=== PATIENT | female | born 1995 | race Caucasian/White ===

== ENCOUNTER → 2020-03-09 09:48 | Outpatient (BNVA) | payer MEDICAID, SELFPAY | PROVIDERS: Family Provider Nurse Practitioner Family; PCP Nurse Practitioner Family; Visit Provider Nurse Practitioner Family | DX: E55.9 Vitamin D deficiency, unspecified (principal); R63.4 Abnormal weight loss; R53.83 Other fatigue | CPT/HCPCS: 80053; 81001; 82306; 83036; 84439; 84443; 85025; 85651; 86140; 86803; 87806 ==

== ENCOUNTER → 2020-03-10 15:45 | Outpatient (BNVA) | payer MEDICAID, SELFPAY | PROVIDERS: Family Provider Nurse Practitioner Family; PCP Nurse Practitioner Family; Visit Provider Nurse Practitioner Family | DX: R63.4 Abnormal weight loss (principal); R53.83 Other fatigue; Z30.42 Encounter for surveillance of injectable contraceptive; E55.9 Vitamin D deficiency, unspecified | CPT/HCPCS: 81025 ==

== ENCOUNTER → 2020-03-30 17:11 | Outpatient (BNVA) | payer MEDICAID, SELFPAY | PROVIDERS: Family Provider Nurse Practitioner Family; PCP Nurse Practitioner Family; Visit Provider Nurse Practitioner Family | DX: F41.9 Anxiety disorder, unspecified (principal); F32.9 Major depressive disorder, single episode, unspecified; N93.9 Abnormal uterine and vaginal bleeding, unspecified | CPT/HCPCS: 36415; 80053; 81025; 84702; 85025 ==

== ENCOUNTER → 2021-08-10 11:26 | Outpatient (BNVA) | payer BC, SELFPAY | PROVIDERS: PCP Nurse Practitioner Family; Visit Provider Nurse Practitioner Family | DX: D64.9 Anemia, unspecified (principal); R63.4 Abnormal weight loss; R53.83 Other fatigue; Z79.899 Other long term (current) drug therapy; E55.9 Vitamin D deficiency, unspecified | CPT/HCPCS: 80053; 81003; 82306; 82607; 82746; 83036; 83550; 84439; 84443; 85025 ==

== ENCOUNTER → 2022-02-12 13:42 | Outpatient (BNVA) | payer BC, SELFPAY | PROVIDERS: PCP Nurse Practitioner Family; Visit Provider Psychiatry & Neurology Psychiatry | DX: F43.12 Post-traumatic stress disorder, chronic (principal); F33.2 Major depressive disorder, recurrent severe without psychotic features; F51.5 Nightmare disorder; F41.1 Generalized anxiety disorder; F17.210 Nicotine dependence, cigarettes, uncomplicated | CPT/HCPCS: 99204 ==

== ENCOUNTER → 2022-02-22 10:43 | Outpatient (BNVA) | payer BC, SELFPAY | PROVIDERS: PCP Nurse Practitioner Family; Visit Provider Social Worker | DX: F33.2 Major depressive disorder, recurrent severe without psychotic features (principal); F41.1 Generalized anxiety disorder; F43.12 Post-traumatic stress disorder, chronic | CPT/HCPCS: 90834 ==

== ENCOUNTER → 2022-03-08 10:43 | Outpatient (BNVA) | payer BC, SELFPAY | PROVIDERS: PCP Nurse Practitioner Family; Visit Provider Social Worker | DX: F33.2 Major depressive disorder, recurrent severe without psychotic features (principal); F41.1 Generalized anxiety disorder; F43.12 Post-traumatic stress disorder, chronic | CPT/HCPCS: 90834 ==

== ENCOUNTER → 2022-03-14 07:26 | Outpatient (BNVA) | payer BC, SELFPAY | PROVIDERS: PCP Nurse Practitioner Family; Visit Provider Psychiatry & Neurology Psychiatry | DX: F41.1 Generalized anxiety disorder (principal); F33.2 Major depressive disorder, recurrent severe without psychotic features; F43.12 Post-traumatic stress disorder, chronic; F17.210 Nicotine dependence, cigarettes, uncomplicated | CPT/HCPCS: 99214 ==

== ENCOUNTER → 2022-03-29 07:40 | Outpatient (BNVA) | payer BC, SELFPAY | PROVIDERS: PCP Nurse Practitioner Family; Visit Provider Social Worker | DX: F33.2 Major depressive disorder, recurrent severe without psychotic features (principal); F41.1 Generalized anxiety disorder; F43.12 Post-traumatic stress disorder, chronic | CPT/HCPCS: 90834 ==

== ENCOUNTER → 2022-04-13 07:27 | Outpatient (BNVA) | payer BC, SELFPAY | PROVIDERS: PCP Nurse Practitioner Family; Visit Provider Social Worker | DX: F33.2 Major depressive disorder, recurrent severe without psychotic features (principal); F41.1 Generalized anxiety disorder; F43.12 Post-traumatic stress disorder, chronic | CPT/HCPCS: 90834 ==

== ENCOUNTER 2022-05-10 02:56 | Emergency (ER) | payer BC, MEDICAID, SELFPAY ==
--- NOTE | 2022-05-10 03:01 | ED_ITS ---
Documented by User: Jairon Mitchell MD 05/21/22 23:47 HPI - General: Chief complaint: Vaginal Bleeding Stated complaint: 7 weeks vaginal bleeding Time Seen by Provider: 05/10/22 03:01 History of Present Illness: Ms. Amezquita is a 26-year-old lady who presents to the emergency department due to vaginal bleeding and lower abdominal cramping. She reports history of premature labor in 2 of her pregnancies in the mid 30s weeks but no other complications. Last night she was feeling normal and went to bed. She woke up with some abdominal cramping and noticed blood in her underwear. Intensity symptoms is mild to moderate. Course has persisted. No other specific changes in health, exacerbating, or alleviating factors identifie d. Onset (ago): hour(s) Pain Consistency: intermittent Severity: mild Quality: Cramping Vaginal bleeding: heavy Review of Systems General: Reports: 10 or more systems reviewed and unremarkable except in HPI and below PFSH ED PFSH: Medical History Cannabis use disorder, mild, abuse was using at night for sleep and anxiety, but stopped in March 2022. Generalized anxiety disorder Hx of cryosurgery, cervix, complicating (~2011) performed in [place] Major depressive disorder, recurrent severe without psychotic features Nicotine dependence, cigarettes, uncomplicated Nightmare disorder No pertinent past medical history neghx: htn,dm,thyroid,dvt/pe PCP: None Post-traumatic stress disorder, chronic Psychiatric care Family History Family/Other Breast cancer Maternal Great aunt-- dx age unknown Denies family history of Colon cancer Ovarian cancer Diabetes Heart disease Hypercholesteremia Hypertension Uterine cancer Thyroid disease Stroke Physical Exam Const: COMMON NORMALS: alert GENERAL APPEARANCE: cooperative and well developed HENMT: COMMON NORMALS: normocephalic and atraumatic HEAD & SCALP: normocephalic and atraumatic Eye: COMMON NORMALS: conjunctivae normal CONJUNCTIVA: Yes conjunctivae normal SCLERA: sclerae normal Neck/C-Spine: COMMON NORMALS: supple GENERAL: Yes trachea midline Resp: COMMON NORMALS: normal respiratory effort EFFORT & INSPECTION: Yes ab le to speak in complete sentences Cardio: COMMON NORMALS: regular rate and regular rhythm RATE: regular rate RHYTHM: regular rhythm GI: COMMON NORMALS: Soft to palpation PALPATION: Yes Soft to palpation and No Tenderness to palpation present (GI) PERCUSSION: normal to percussion : OTHER: Pelvic exam performed with cyber transport systems specialist present. Normal external genitalia without blood noted at introitus or perineum. Vagina appears normal, there is pooling in the vaginal vault which somewhat obscures visualization of the cervix. No clots identified. There is midline tenderness on palpation of bimanual exam. Extremity: GENERAL: Yes normal exam except as noted and No edema Neuro: COMMON NORMALS: moves all extremities SENSORIUM/ORIENTATION: Yes alert and No Orientation impaired Psych: COMMON NORMALS: mental status grossly normal and Normal thought process present THOUGHT PROCESS: Normal thought process present Course ED course: - Patient was seen and evaluated by me at bedside - Patient placed on cardiac monitors, IV access obtained - Initial evaluation notable for exam as above - Labs personally interpreted by me - Labs notable for normal hemoglobin. hCG quant [id number]. Previous blood type a positive - Imaging notable for IUP with likely subchorionic hemorrhage - Upon serial reexamination after treatment the patient was similar - Based on patient history, evaluation, and testing as interpreted the most likely cause of the patient's condition is bleeding in early likely related to subchorionic hemorrhage - The results of ED evaluation were discussed with the patient including presc riptions and/or symptomatic cares (if applicable) including appropriate and responsible use, followup plan, and return precautions. The patient verbalized understanding and felt safe for discharge. - Patient discharged in satisfactory condition. Note: Click bubbles or prepopulated dos santos in note writing are used for assistance with data collection and billing and are inherently more limited than narrative and other text portions of this note. Please use narrative for additional clinical history and defer to narrative/free test for any case of contradictory information. If information appears in only free text or click bubble it should be considered present or absent as reported. Please contact note blurb writer for clarifications of clinical information or contradictory information. MDM is a brief summary, contradictory or erroneous seeming information should be clarified and full note should be reviewed. Vital Signs: Vital signs: Vital Signs Temperature 98.2 F 05/10/22 03:03 Pulse Rate 97 05/10/22 03:29 Respiratory Rate 18 05/10/22 06:00 Blood Pressure 113/76 05/10/22 06:00 Pulse Oximetry 98 05/10/22 06:00 Oxygen Delivery Me thod 05/10/22 06:00 MDM - OB/Uterine Contractions Medical Decision Making 26-year-old lady approximately 7 weeks presenting with cramping and vaginal bleeding. Blood pooling in the vaginal vault however patient is vitally stable and has satisfactory hemoglobin. Subchorionic hemorrhage identified on ultrasound. Satisfactory for continued outpatient management. I discussed risk of miscarriage with patient. I apparently erroneously cosigned this patient to Dr. Felix. He did not participate in this patient's care. Chart signed out to me however Dr. Mitchell completed care and I did not see or participate in care of this patient. Medical Records I reviewed the patient's medical records. Lab Data I reviewed the patient's lab results. : 05/10/22 03:07 Radiology Impressions Transvaginal US 05/10/22 04:47 IMPRESSION: 1. Single live intrauterine gestation with estimated age of 7 weeks 2 days. 2. Isoechoic focus anterior to the gestational sac, concerning for subchorionic hematoma. Laboratory Results WBC 9.6 10^3/uL (4.0-10.0) 05/10/22 03:07 RBC 4.44 10^6/uL (4.1-5.3) 05/10/22 03:07 Hgb 13.4 g/dL (11.5-15.3) 05/10/22 03:07 Hct 40.3 % (37.0-47.0) 05/10/22 03:07 MCV 90.8 fl (81-99) 05/10/22 03:07 MCH 30.2 pg (28.0-34.0) 05/10/22 03:07 MCHC 33.3 g/dL (30.0-36.0) 05/10/22 03:07 RDW 13.6 % (12.1-15.1) 05/10/22 03:07 Plt Count 288 10^3/cmm (130-400) 05/10/22 03:07 MPV 10.1 fL (7.4-10.4) 05/10/22 03:07 Neut % (Auto) 56.6 % 05/10/22 03:07 Lymph % (Auto) 30.8 % 05/10/22 03:07 [place] % (Auto) 10.0 % 05/10/22 03:07 Eos % (Auto) 1.7 % 05/10/22 03:07 Baso % (Auto) 0.6 % 05/10/22 03:07 Neut # (Auto) 5.43 10^3/uL (1.8-7.7) 05/10/22 03:07 Lymph # (Auto) 3.0 10^3/uL (0.8-4.8) 05/10/22 03:07 [place] # (Auto) 1.0 10^3/uL (0.2-0.9) H 05/10/22 03:07 Eos # (Auto) 0.2 10^3/uL (0.0-0.8) 05/10/22 03:07 Baso # (Auto) 0.1 10^3/uL (0.0-0.1) 05/10/22 03:07 Nucleated RBC % (auto) 0 % 05/10/22 03:07 Nucleated RBCs # 0.0 /100WBC 05/10/22 03:07 Ser , Semi-Qnt 64892.00 mIU/mL 05/10/22 03:07 Blood Type A Positive 05/10/22 03:07 Rho(D) Type Positive 05/10/22 03:07 Discharge Plan Discharge Patient Disposition: Home Clinical Impression: Threatened , Subchorionic hematoma in first trimester Condition: Stable Prescriptions: No Action prenat.vits,giulia,rop-nemz-ykyqn Tablet 1 tab PO DAILY prenat.vits,giulia,sgy-bblr-yrabw Tablet 1 tab PO DAILY Qty: 90 3RF Discharge Orders: Discharge ED (Routine); Ordered 05/10/22 Ordered By: Jairon Mitchell Referrals: ALINA Solomon, E BUSINESS PROJECT MANAGER [Primary Care Provider] - Discharge Diet: Usual diet Discharge Activity: Limit activity as instructed Patient Instructions: Threatened Miscarriage (ED), Pelvic Rest (ED) Activity Restrictions/Additional Instructions: Thank you for visiting the emergency department. You were seen and evaluated for abnormal bleeding during . You were found to have a subchorionic hematoma which is a common cause of bleeding in early . When you have bleeding in early it is referred to as a threatened miscarriage. This does not mean that you will have a miscarriage however it does mean that there is a risk. Please follow-up with your patents examiner. Please return to the emergency department for worsening symptoms or anything else that you are concerned about and feel needs emergency department evaluat ion. Coding Level of Care Code ED Sales Consulting Director for Chg Fwd Documented by User: Ap Felix DO 05/10/22 08:51 HPI - General: Chief complaint: Vaginal Bleeding Stated complaint: 7 weeks vaginal bleeding Time Seen by Provider: 05/10/22 03:01 [facility] ED PFSH: Medical History Cannabis use disorder, mild, abuse was using at night for sleep and anxiety, but stopped in March 2022. Generalized anxiety disorder Hx of cryosurgery, cervix, complicating (~2011) performed in [place] Major depressive disorder, recurrent severe without psychotic features Nicotine dependence, cigarettes, uncomplicated Nightmare disorder No pertinent past medical history neghx: htn,dm,thyroid,dvt/pe PCP: None Post-traumatic stress disorder, chronic Psychiatric care Family History Family/Other Breast cancer Maternal Great aunt-- dx age unknown Denies family history of Colon cancer Ovarian cancer Diabetes Heart disease Hypercholesteremia Hypertension Uterine cancer Thyroid disease Stroke Course Vital Signs: Vital signs: Vital Signs Temperature 98.2 F 05/10/22 03:03 Pulse Rate 97 05/10/22 03:29 Respiratory Rate 18 05/10/22 06:00 Blood Pressure 113/76 05/10/22 06:00 Pulse Oximetry 98 05/10/22 06:00 Oxygen Delivery Me thod 05/10/22 06:00 MDM - OB/Uterine Contractions Medical Decision Making Chart signed out to me however Dr. Mitchell completed care and I did not see or participate in care of this patient. Lab Data : 05/10/22 03:07 Radiology Impressions Transvaginal US 05/10/22 04:47 IMPRESSION: 1. Single live intrauterine gestation with estimated age of 7 weeks 2 days. 2. Isoechoic focus anterior to the gestational sac, concerning for subchorionic hematoma. Laboratory Results WBC 9.6 10^3/uL (4.0-10.0) 05/10/22 03:07 RBC 4.44 10^6/uL (4.1-5.3) 05/10/22 03:07 Hgb 13.4 g/dL (11.5-15.3) 05/10/22 03:07 Hct 40.3 % (37.0-47.0) 05/10/22 03:07 MCV 90.8 fl (81-99) 05/10/22 03:07 MCH 30.2 pg (28.0-34.0) 05/10/22 03:07 MCHC 33.3 g/dL (30.0-36.0) 05/10/22 03:07 RDW 13.6 % (12.1-15.1) 05/10/22 03:07 Plt Count 288 10^3/cmm (130-400) 05/10/22 03:07 MPV 10.1 fL (7.4-10.4) 05/10/22 03:07 Neut % (Auto) 56.6 % 05/10/22 03:07 Lymph % (Auto) 30.8 % 05/10/22 03:07 [place] % (Auto) 10.0 % 05/10/22 03:07 Eos % (Auto) 1.7 % 05/10/22 03:07 Baso % (Auto) 0.6 % 05/10/22 03:07 Neut # (Auto) 5.43 10^3/uL (1.8-7.7) 05/10/22 03:07 Lymph # (Auto) 3.0 10^3/uL (0.8-4.8) 05/10/22 03:07 [place] # (Auto) 1.0 10^3/uL (0.2-0.9) H 05/10/22 03:07 Eos # (Auto) 0.2 10^3/uL (0.0-0.8) 05/10/22 03:07 Baso # (Auto) 0.1 10^3/uL (0.0-0.1) 05/10/22 03:07 Nucleated RBC % (auto) 0 % 05/10/22 03:07 Nucleated RBCs # 0.0 /100WBC 05/10/22 03:07 Ser , Semi-Qnt 42550.00 mIU/mL 05/10/22 03:07 Blood Type A Positive 05/10/22 03:07 Rho(D) Type Positive 05/10/22 03:07 Discharge Plan Discharge Patient Disposition: Home Clinical Impression: Threatened , Subchorionic hematoma in first trimester Condition: Stable Prescriptions: No Action prenat.vits,giulia,vwl-aopf-uolhj Tablet 1 tab PO DAILY prenat.vits,giulia,wfk-mwas-npnxc Tablet 1 tab PO DAILY Qty: 90 3RF Discharge Orders: Discharge ED (Routine); Ordered 05/10/22 Ordered By: Jairon Mitchell Referrals: ALINA Solomon, E BUSINESS PROJECT MANAGER [Primary Care Provider] - Discharge Diet: Usual diet Discharge Activity: Limit activity as instructed Patient Instructions: Threatened Miscarriage (ED), Pelvic Rest (ED) Activity Restrictions/Additional Instructions: Thank you for visiting the emergency department. You were seen and evaluated for abnormal bleeding during . You were found to have a subchorionic hematoma which is a common cause of bleeding in early . When you have bleeding in early it is referred to as a threatened miscarriage. This does not mean that you will have a miscarriage however it does mean that there is a risk. Please follow-up with your patents examiner. Please return to the emergency department for worsening symptoms or anything else that you are concerned about and feel needs emergency department evaluation. Coding Level of Care Code ED Sales Consulting Director for Sander Gunter
[2022-05-10 03:03] VITALS: BP 127/83; PULSE 67; RESP 16; TEMP 36.8; O2SAT 98; BMI 18.8
[2022-05-10 03:13] LABS: Basophils # 0.1 10^3/uL (0.0-0.1); Basophils % 0.6 %; Eosinophils # 0.2 10^3/uL (0.0-0.8); Eosinophils % 1.7 %; Hematocrit 40.3 % (37.0-47.0); Hemoglobin 13.4 g/dL (11.5-15.3); Lymphocytes % 30.8 %; Mean Corpuscular HGB Conc 33.3 g/dL (30.0-36.0); Mean Corpuscular Hemoglobin 30.2 pg (28.0-34.0); Mean Corpuscular Volume 90.8 fl (81-99); Mean Platelet Volume 10.1 fL (7.4-10.4); Neutrophils # 5.43 10^3/uL (1.8-7.7); Neutrophils % 56.6 %; Nucleated Red Blood Cells % 0 %; Platelet Count 288 10^3/cmm (130-400); Red Blood Count 4.44 10^6/uL (4.1-5.3); Red Cell Distribution Width 13.6 % (12.1-15.1); White Blood Count 9.6 10^3/uL (4.0-10.0)
[2022-05-10 03:29] VITALS: BP 123/75; PULSE 97; RESP 18; O2SAT 96
--- NOTE | 2022-05-10 04:47 | USR_ITS ---
PROCEDURE INFORMATION: Exam: US , Transvaginal Exam date and time: 05/10/2022 5:38 AM Age: 26 years old Clinical indication: Lmp or gestational age (in weeks): 7wks; Antepartum complications; Bleeding; ; Additional info: Approx 7 weeks, bleeding/cramping LABS AND CLINICAL REPORTS: Last menstrual period start date: 03/24/2022 Gestational age (Established): 6 w 5 d Estimated due date (Established): 12/29/2022 TECHNIQUE: Imaging protocol: Real-time transvaginal obstetrical ultrasound of the maternal pelvis with image documentation. Transvaginal imaging was used for better evaluation of the fetus, adnexa, and/or cervix. [place] [facility] [place] 14 [place] 11/27/2018 8:47 AM FINDINGS: Gestation: Yolk sac measures 6.6 mm. heart rate: 167 bpm Placenta: Anterior to the gestational sac, there is a focal isoechoic area measuring approximately 5.0 x 2.5 x 3.7 cm, concerning for subchorionic hematoma. BIOMETRY: Gestational age (AUA): 7 w 2 d Mean sac diameter: 1.3 cm. EGA (MSD) is 6 w 6 d [place]-Rump length (CRL): 11.6 mm. EGA (CRL) is 7 w 2 d MATERNAL: Uterus: Uterus measures 5.9 cm x 8.2 cm x 6.8 cm. Right ovary/adnexa: Unremarkable. There is a hypoechoic focus measuring 2.1 x 2.6 x 1.8 cm, likely representing corpus luteum. Normal blood flow to right ovary seen. Left ovary/adnexa: Unremarkable. Normal blood flow to left ovary seen. US/US OB transvaginal [id number] IMPRESSION: 1. Single live intrauterine gestation with estimated age of 7 weeks 2 days. 2. Isoechoic focus anterior to the gestational sac, concerning for subchorionic hematoma.
[2022-05-10 04:55] VITALS: BP 115/72
[2022-05-10 06:00] VITALS: BP 113/76; RESP 18; O2SAT 98
== END 2022-05-10 06:52 | disposition home or self-care (01) ==
PROVIDERS: Emergency Provider Emergency Medicine; PCP Nurse Practitioner Family
DX: O20.0 Threatened abortion (principal); Z3A.01 Less than 8 weeks gestation of pregnancy; O46.8X1 Other antepartum hemorrhage, first trimester
CPT/HCPCS: 76817; 81025; 84702; 85025; 86900; 87210; 99284

== ENCOUNTER → 2022-06-04 14:09 | Outpatient (BNVA) | payer BC, MEDICAID, SELFPAY | PROVIDERS: PCP Nurse Practitioner Family; Visit Provider Obstetrics & Gynecology | DX: Z34.90 Encounter for supervision of normal pregnancy, unspecified, unspecified trimester (principal) | CPT/HCPCS: 80307; 81000; 87086 ==

== ENCOUNTER → 2022-07-02 09:35 | Outpatient (BNVA) | payer BC, MEDICAID, SELFPAY | PROVIDERS: PCP Nurse Practitioner Family; Visit Provider Obstetrics & Gynecology | DX: O09.899 Supervision of other high risk pregnancies, unspecified trimester (principal) | CPT/HCPCS: 80307; 81000; 84443; 85025; 86592; 86762; 86803; 86850; 86900; 87086; 87340; 87491; 87591; 87661; 87806; 88175 ==

== ENCOUNTER → 2022-08-02 13:26 | Outpatient (BNVA) | payer BC, SELFPAY | PROVIDERS: Visit Provider Obstetrics & Gynecology | DX: O09.899 Supervision of other high risk pregnancies, unspecified trimester (principal); Z3A.00 Weeks of gestation of pregnancy not specified | CPT/HCPCS: 81000 ==

== ENCOUNTER 2022-08-09 23:41 | Emergency (ER) | payer BC, MEDICAID, SELFPAY ==
[2022-08-10] VITALS: BP 123/86; PULSE 84; RESP 18; TEMP 37.1; O2SAT 97
--- NOTE | 2022-08-10 00:19 | USR_ITS ---
PROCEDURE INFORMATION: Exam: US Soft Tissue Head and Neck, Soft Tissue Exam date and time: 08/10/2022 12:54 AM Age: 27 years old Clinical indication: Neck pain; Patient HX: Patient is 20 weeks , with right neck lump, which is painful to touch, noticed 6-7 days. No trauma. ; Additional info: Right neck swelling TECHNIQUE: Imaging protocol: Real-time ultrasound scan of the head and neck with image documentation. Exam focused on the soft tissue in the region of clinical concern. COMPARISON: No relevant prior studies available. FINDINGS: Lymph nodes: No definite additional separate lymph nodes. Soft tissues: Approximately 1.6 x 2.6 x 4.9 cm mildly lobulated heterogeneous mass containing small complex septated cystic component posterolateral to the right internal jugular vein. Other findings: Mild anterior displacement and partial effacement of the right internal jugular vein. US/US soft tissue head neck [id number] IMPRESSION: Approximately 1.6 x 2.6 x 4.9 cm mildly lobulated heterogeneous mass containing small complex septated cystic component posterolateral to the right internal jugular vein. Differential diagnosis includes necrotic jugular chain lymph node cluster versus nonspecific right neck posterior triangle mass.
--- NOTE | 2022-08-10 00:23 | W.ED.GENADLT ---
HPI - General Adult General: Chief complaint: General Medical Stated complaint: blood clot in neck sent by [employer] Time Seen by Provider: 08/09/22 23:45 Source: patient Mode of arrival: ambulatory Limitations: no limitations History of Present Illness: 27-year-old female who states she has had some swelling and a mass to the right side of her neck over the last 6 days. She states she had an ultrasound done at [place] and called her told her to come here she may have a blood clot. States it is painful to touch and when she moves her head denies any injuries denies any difficulty swallowing or breathing. No history of blood clots in the past. Associated symptoms: Deny chest pain, dyspnea, headache(s), nausea, rash or vomiting Review of Systems Const: Denies: fever(s), chills, body aches or change in appetite Eyes: Denies: blurry vision or eye discomfort ENMT: Denies: throat pain or dental pain Card: Denies: chest pain Resp: Denies: dyspnea GI: Denies: abdominal pain, nausea, vomiting or diarrhea : Denies: dysuria Musc: Denies: neck pain or back pain Skin/Breast: Denies: rash Neuro: Denies: headache(s) Psych: Denies: depression [place]/Lymph: Denies: easy bruising All/Imm: Denies: urticaria PFSH ED PFSH: Medical History Cannabis use disorder, mild, abuse was using at night for sleep and anxiety, but stopped in March 2022. Generalized anxiety disorder Hx of cryosurgery, cervix, complicating (~2011) performed in [place] Major depressive disorder, recurrent severe without psychotic features Nicotine dependence, cigarettes, uncomplicated Nightmare disorder No pertinent past medical history neghx: htn,dm,thyroid,dvt/pe PCP: None Post-traumatic stress disorder, chronic Psychiatric care Family History Family/Other Breast cancer Maternal Great aunt-- dx age unknown Denies family history of Colon cancer Ovarian cancer Diabetes Heart disease Hypercholesteremia Hypertension Uterine cancer Thyroid disease Stroke Social History Smoking and tobacco status: current every day smoker Quit status (tobacco): has tried quititng Number of times tried to quit tobacco: 4 Second hand smoke exposure: Yes Smoking risk assessment/counseling performed?: No Alcohol intake: former Desire information about alcohol rehabilitation?: No Counseling given: No Female Reproductive History: Date of last menstrual period: 03/22/22 Physical Exam Const: COMMON NORMALS: no acute distress, patient oriented x3 and healthy appearing HENMT: COMMON NORMALS: normocephalic and atraumatic HEAD & SCALP: normocephalic and atraumatic Eye: COMMON NORMALS: Equal, round and reactive pupils present and EOMs intact bilaterally PUPIL: Yes Equal, round and reactive pupils present Neck/C-Spine: OTHER: Tenderness along swelling to the right side of the neck Chest: COMMONS NORMALS: normal inspection of the chest and normal palpation of entire chest wall Resp: COMMON NORMALS: normal respiratory effort, No retractions, No use of accessory muscles and clear to auscultation bilaterally AUSCULTATION: clear to auscultation bilaterally Cardio: COMMON NORMALS: regular rate, regular rhythm and No murmurs present (Cardio) RATE: regular rate RHYTHM: regular rhythm GI: COMMON NORMALS: Normal to inspection, nondistended, normoactive bowel sounds present, Soft to palpation, non-tender and no masses PALPATION: Yes Soft to palpation Extremity: COMMON NORMALS: normal to inspection and full ROM Neuro: COMMON NORMALS: patient oriented x3, moves all extremities and no focal motor deficits Psych: COMMON NORMALS: mental status grossly normal, Normal thought process present and cooperative THOUGHT PROCESS: Normal thought process present Skin: COMMON NORMALS: no rashes or lesions noted and no wounds GENERAL SKIN EXAM: no rashes or lesions noted Course Vital Signs: Vital signs: Vital Signs Temperature 98.7 F 08/10/22 00:00 Pulse Rate 76 08/10/22 02:29 Respiratory Rate 16 08/10/22 02:29 Blood Pressure 109/73 08/10/22 02:29 Pulse Oximetry 98 08/10/22 02:29 Oxygen Delivery Me thod 08/10/22 00:00 MDM - General Adult Medical Decision Making Patient presents here with right neck mass CT shows this mass I did ENT Dr. Burger and will get patient follow-up with Dr. Burger she is return if worsening she is well-appearing here. Lab Data : 08/10/22 00:20 10/21/22 00:20 Radiology Impressions Head/Neck Ultrasound 08/10/22 00:19 IMPRESSION: Approximately 1.6 x 2.6 x 4.9 cm mildly lobulated heterogeneous mass containing small complex septated cystic component posterolateral to the right internal jugular vein. Differential diagnosis includes necrotic jugular chain lymph node cluster versus nonspecific right neck posterior triangle mass. Neck CT 08/10/22 01:40 IMPRESSION: 1. Approximately 2.5 x 2.0 x 6.4 cm mildly heterogeneous right neck posterior triangle mass posterolateral to the right internal jugular vein with small fluid attenuation areas and possible layering densities. Differential diagnosis includes subacute right neck posterior triangle hematoma versus necrotic jugular chain lymph node cluster versus other nonspecific neck mass. Recommend clinical correlation and clinical follow-up. 2. A couple tiny 3 mm right lower lobe nonspecific noncalcified pulmonary nodules or granulomas. 3. Diffuse sinus disease as described. Laboratory Results WBC 12.6 10^3/uL (4.0-10.0) H 08/10/22 00:20 RBC 4.20 10^6/uL (4.1-5.3) 08/10/22 00:20 Hgb 13.0 g/dL (11.5-15.3) 08/10/22 00:20 Hct 38.2 % (37.0-47.0) 08/10/22 00:20 MCV 91.0 fl (81-99) 08/10/22 00:20 MCH 31.0 pg (28.0-34.0) 08/10/22 00:20 MCHC 34.0 g/dL (30.0-36.0) 08/10/22 00:20 RDW 12.6 % (12.1-15.1) 08/10/22 00:20 Plt Count 216 10^3/cmm (130-400) 08/10/22 00:20 MPV 10.6 fL (7.4-10.4) H 08/10/22 00:20 Neut % (Auto) 70.9 % 08/10/22 00:20 Lymph % (Auto) 18.2 % 08/10/22 00:20 [place] % (Auto) 7.0 % 08/10/22 00:20 Eos % (Auto) 2.5 % 08/10/22 00:20 Baso % (Auto) 0.7 % 08/10/22 00:20 Neut # (Auto) 8.96 10^3/uL (1.8-7.7) H 08/10/22 00:20 Lymph # (Auto) 2.3 10^3/uL (0.8-4.8) 08/10/22 00:20 [place] # (Auto) 0.9 10^3/uL (0.2-0.9) 08/10/22 00:20 Eos # (Auto) 0.3 10^3/uL (0.0-0.8) 08/10/22 00:20 Baso # (Auto) 0.1 10^3/uL (0.0-0.1) 08/10/22 00:20 Nucleated RBC % (auto) 0 % 08/10/22 00:20 Nucleated RBCs # 0.0 /100WBC 08/10/22 00:20 PT 12.70 SECONDS (12.1-14.9) 08/10/22 00:20 INR 0.92 (0.8-1.2) 08/10/22 00:20 Sodium 137 mmol/L (136-145) 08/10/22 00:20 Potassium 3.8 mmol/L (3.5-5.1) 08/10/22 00:20 Chloride 102 mmol/L (98-107) 08/10/22 00:20 Carbon Dioxide 24 mmol/L (22-29) 08/10/22 00:20 Anion Gap 14.8 (5-19) 08/10/22 00:20 BUN 5 mg/dL (6-20) L 08/10/22 00:20 Creatinine 0.5 mg/dL (0.5-0.9) 08/10/22 00:20 GFR Calculation 145.9 mL/min (90-130) H 08/10/22 00:20 Glucose 91 mg/dL (65-115) 08/10/22 00:20 Calculated Osmolality 281 mOsm/kg (285-295) L 08/10/22 00:20 Calcium 9.1 mg/dL (8.5-10.5) 08/10/22 00:20 Total Bilirubin 0.2 mg/dL (0.15-1.2) 08/10/22 00:20 AST 21 U/L (0-32) 08/10/22 00:20 ALT 10 U/L (0-33) 08/10/22 00:20 Alkaline Phosphatase 64 U/L (35-105) 08/10/22 00:20 Total Protein 7.3 g/dL (6.6-8.7) 08/10/22 00:20 Albumin 4.0 g/dL (3.5-5.2) 08/10/22 00:20 Globulin 3.3 g/dL (1.3-4.6) 08/10/22 00:20 Discharge Plan Discharge Patient Disposition: Home Clinical Impression: Mass of neck Condition: Stable Prescriptions: No Action trazodone 50 mg tablet 50 mg PO DAILY PRN azithromycin 250 mg tablet See Rx Instructions PO .COMPLEX Qty: 6 0RF Rx Instructions: For 250 mg dose pack: take 500 mg today (day 1), then 250 mg for 4 days (days 2-5) PO prenat.vits,giulia,tpp-sftc-ngquq Tablet 1 tab PO DAILY duloxetine 60 mg capsule,delayed release(DR/EC) 60 mg PO DAILY Qty: 90 4RF hydroxyprogesterone cap(ppres) [[place]] 250 mg/mL oil IM .Weekly Discharge Orders: Discharge ED (Routine); Ordered 08/10/22 Ordered By: Aliza Serna Referrals: Finn Burger MD [Physician] - 1-3 days Discharge Diet: Advance as tolerated Discharge Activity: Resume usual activity Patient Instructions: Soft Tissue Mass (ED) Coding Level of Care Code ED Building Analyst/Supervisor for Chg Fwd Exam Comprehensive
[2022-08-10 00:37] LABS: Basophils # 0.1 10^3/uL (0.0-0.1); Basophils % 0.7 %; Eosinophils # 0.3 10^3/uL (0.0-0.8); Eosinophils % 2.5 %; Hematocrit 38.2 % (37.0-47.0); Lymphocytes # 2.3 10^3/uL (0.8-4.8); Lymphocytes % 18.2 %; Mean Platelet Volume 10.6 fL (7.4-10.4); Monocytes # 0.9 10^3/uL (0.2-0.9); Neutrophils # 8.96 10^3/uL (1.8-7.7); Neutrophils % 70.9 %; Nucleated Red Blood Cells % 0 %; Platelet Count 216 10^3/cmm (130-400); Red Cell Distribution Width 12.6 % (12.1-15.1); White Blood Count 12.6 10^3/uL (4.0-10.0)
[2022-08-10 00:51] LABS: INR 0.92 (0.8-1.2)
[2022-08-10 00:58] LABS: Alanine Aminotransferase 10 U/L (0-33); Alkaline Phosphatase 64 U/L (35-105); Anion Gap 14.8 (5-19); Aspartate Amino Transferase 21 U/L (0-32); Blood Urea Nitrogen 5 mg/dL (6-20); Calcium 9.1 mg/dL (8.5-10.5); Carbon Dioxide 24 mmol/L (22-29); Chloride 102 mmol/L (98-107); Creatinine Clr Calc Pharmacy 152.1184; Globulin 3.3 g/dL (1.3-4.6); Glomerular Filtration Rate 145.9 mL/min (90-130); Glucose 91 mg/dL (65-115); Osmolality Calculated 281 mOsm/kg (285-295); Potassium 3.8 mmol/L (3.5-5.1); Sodium 137 mmol/L (136-145); Total Bilirubin 0.2 mg/dL (0.15-1.2); Total Protein 7.3 g/dL (6.6-8.7)
--- NOTE | 2022-08-10 01:40 | CTR_ITS ---
PROCEDURE INFORMATION: Exam: CT Neck With Contrast Exam date and time: 08/10/2022 1:54 AM Age: 27 years old Clinical indication: Mass, lump, or swelling in neck; Right; Patient HX: Bb on area of interest. Patient shielded - 20 weeks ; Additional info: Right neck mass TECHNIQUE: Imaging protocol: Computed tomography of the neck with contrast. Radiation optimization: All CT scans at this facility use at least one of these dose optimization techniques: automated exposure control; mA and/or kV adjustment per patient size (includes targeted exams where dose is matched to clinical indication); or iterative reconstruction. Contrast material: OMNI 350; Contrast volume: 80 ml; Contrast route: INTRAVENOUS (IV); COMPARISON: US soft tissue head neck [id number] 08/10/2022 12:54 AM RADIATION DOSE METRICS: Total DLP (mGy-cm): 226.63 FINDINGS: Paranasal sinuses: Diffuse sinus mucosal thickening with mild right sphenoid sinus and left maxillary sinus dependent opacity. Pharynx: Unremarkable. No significant tonsillar enlargement. Larynx: No acute abnormality. Normal epiglottis. Prevertebral and retropharyngeal spaces: Unremarkable. No fluid collection. Salivary glands: No acute abnormality. Glands are normal in size. Thyroid: No acute abnormality. No enlarged or calcified nodules. Lymph nodes: Multiple small nonspecific bilateral cervical lymph nodes. Trachea: Normal. Lungs: A couple tiny 3 mm right lower lobe nonspecific noncalcified pulmonary nodules or granulomas. Bones/joints: No acute osseous abnormality. No acute fracture. Vasculature: Vascular structures appear patent and enhancing. No definite vascular contrast extravasation. Mild anterior displacement and partial effacement of the right internal jugular vein. Soft tissues: Approximately 2.5 x 2.0 x 6.4 cm mildly heterogeneous right neck posterior triangle mass posterolateral to the right internal jugular vein with small fluid attenuation areas and possible layering densities. Minimal adjacent right neck posterior triangle fluid. Pierced left nares. CT/CT neck w con* [id number] IMPRESSION: 1. Approximately 2.5 x 2.0 x 6.4 cm mildly heterogeneous right neck posterior triangle mass posterolateral to the right internal jugular vein with small fluid attenuation areas and possible layering densities. Differential diagnosis includes subacute right neck posterior triangle hematoma versus necrotic jugular chain lymph node cluster versus other nonspecific neck mass. Recommend clinical correlation and clinical follow-up. 2. A couple tiny 3 mm right lower lobe nonspecific noncalcified pulmonary nodules or granulomas. 3. Diffuse sinus disease as described.
[2022-08-10] MEDS: iohexol 350 mg/mL 100 mL Btl IV (01:44)
[2022-08-10 02:29] VITALS: BP 109/73; PULSE 76; RESP 16; O2SAT 98
[2022-08-10 05:09] VITALS: BP 112/80; PULSE 83; RESP 16; O2SAT 97
--- NOTE | 2022-08-10 10:58 | DCPLANNER ---
Addendum entered by Dixie Orantes 10/01/22 16:04: Patient had a follow up appointment scheduled with ENT - patient did attend appointment. Addendum entered by Dixie Orantes 08/10/22 13:24: Patient has a follow up appointment scheduled for Sunday, August 14, 2022 at 1:[address] Burger at ENT. Clinic will call patient with appointment information. Original Note: manager mortgage had message to schedule a follow up appointment for patient with ENT. manager mortgage sent patients information to the front office staff at ENT. Patients information will be printed and reviewed. Clinic will call patient with appointment information.
== END 2022-08-10 05:05 | disposition home or self-care (01) ==
PROVIDERS: Emergency Provider Emergency Medicine
DX: R22.1 Localized swelling, mass and lump, neck (principal); F17.210 Nicotine dependence, cigarettes, uncomplicated
CPT/HCPCS: 70491; 76536; 80053; 85025; 85610; 99285; Q9967

== ENCOUNTER 2022-08-14 06:17 | Outpatient (CLI) | payer BC, MEDICAID, SELFPAY ==
--- NOTE | 2022-08-14 | US_ITS ---
ULTRASOUND GUIDED BIOPSY RIGHT NECK MASS, POSTERIOR TRIANGLE. HISTORY: Enlarging painful mass along the RIGHT posterior triangle. Comparison: Neck CT 08/10/2022 and prior ultrasound 08/10/2022. Procedure, risks, and complications are explained to the patient. Consent was obtained. Skin is cleansed with ChloraPrep and anesthetized with 1% buffered lidocaine. There is a large complex cystic mass with low-level echoes and fluid-fluid levels along the RIGHT lateral posterior triangle. This mass extends over a length of at least 4.5 cm. There are low level echoes which are mobile. Additional solid component and a few small adjacent lymph nodes. The internal jugular vein is being displaced anteriorly. Mass is lateral to the carotid artery and deep to the sternocleidomastoid muscle. This does not extend into the carotid space. There is no splaying of the internal or external carotid arteries. Fine-needle aspiration was performed with 22-gauge needles. Aspirate was obtained for cytopathology. A complex fluid collection was also drained. Approximately 5 cc of dark red blood was removed. The mass did decrease slightly in size. No complications. Patient was observed 15 minutes postprocedure for any bleeding. IMPRESSION: 1. Complex cystic mass in the posterior RIGHT neck is targeted for fine- needle aspiration and also partial aspiration. 2. Only small needles were utilized for fine needle aspiration. The solid component was targeted. May not be sufficient material for diagnostic purposes. 3. The complex mobile collection was also aspirated. Approximately 5 cc of dark red blood were removed. 4. This mass may need to be completely excised to obtain the diagnosis. Consider hemorrhagic/infectious brachial cleft cyst/lymphocele. This does not appear to be a lymph node although there are some adjacent small lymph nodes which are increased in number. MTDD
== END 2022-08-14 06:18 | disposition home or self-care (01) ==
LOC: RAD 06:18
PROVIDERS: PCP Family Medicine; Visit Provider Otolaryngology
DX: Q18.0 Sinus, fistula and cyst of branchial cleft (principal)
CPT/HCPCS: 10005; 88108

== ENCOUNTER → 2022-08-17 09:51 | Outpatient (BNVA) | payer BC, MEDICAID, SELFPAY | PROVIDERS: PCP Family Medicine; Visit Provider Obstetrics & Gynecology | DX: O09.899 Supervision of other high risk pregnancies, unspecified trimester (principal) | CPT/HCPCS: 81000 ==

== ENCOUNTER → 2022-09-06 15:17 | Outpatient (BNVA) | payer BC, SELFPAY | PROVIDERS: PCP Family Medicine; Visit Provider Obstetrics & Gynecology | DX: O09.899 Supervision of other high risk pregnancies, unspecified trimester (principal) | CPT/HCPCS: 81000 ==

== ENCOUNTER → 2022-10-05 14:50 | Outpatient (BNVA) | payer BC, MEDICAID, SELFPAY | PROVIDERS: PCP Family Medicine; Visit Provider Obstetrics & Gynecology | DX: O09.899 Supervision of other high risk pregnancies, unspecified trimester (principal) | CPT/HCPCS: 81000; 82950; 85025; 87086 ==

== ENCOUNTER 2022-10-28 12:52 | Outpatient (CLI) | payer BC, MEDICAID, SELFPAY ==
[2022-10-28] VITALS (20 sets, daily range): BP systolic 118–137; BP diastolic 67–91; PULSE 75–105; RESP 16–18; TEMP 36.3; O2SAT 93–100; BMI 21.9
[2022-10-28 13:28] LABS: Nitrazine Paper, PH Inconclusive
[2022-10-28 13:34] LABS: Actim Prom Positive
--- NOTE | 2022-10-28 13:42 | PM.OBGYHP ---
Providers/Chief Complaint Admitting Physician: Luis HOGUE Primary FIELD ACCOUNT MANAGER: Dr. Quick Primary Care Provider: Minesh Lobo MD Chief Complaint: POSSIBLE RUPTURE OF MEMBRANES HPI FIELD ACCOUNT MANAGER History of Present Illness Ermelinda Julian is a 27 year old female at 31.5 wk IUP with CHAN 12/25/2022 observed on labor and delivery after arrival with complaints of possible rupture of membranes 11:00 AM today after sexual intercourse. Patient has significant history for deliveries. ACTIM- Positive for rupture of Membranes. Cervix?closed. EFM?category 1 Present Details : 5 Para: 4 Date of Last Menstrual Period: 03/22/22 Calculated Date of Delivery: 12/27/22 Gestational Age Based on Last Menstrual Period: 31 Review of Systems General: Reports: 10 or more systems reviewed and unremarkable except in HPI and below Medications/Allergies Home Medications Medication Instructions Recorded Confirmed Last Taken Type prenat.vits,giulia,wfy-ylfr-ieycn 1 tab PO DAILY 05/10/22 10/28/22 10/27/22 History duloxetine 60 mg capsule,delayed 60 mg PO DAILY #90 caps 06/04/22 10/28/22 10/27/22 Rx release trazodone 50 mg tablet 50 mg PO DAILY PRN Anxiety 07/13/22 10/28/22 10/25/22 History hydroxyprogesterone cap(ppres) 250 mg IM .WEEKLY 08/01/22 10/24/22 10/27/22 History mg/mL IM oil (Olesya) ciprofloxacin HCl 500 mg tablet 500 mg PO BID #20 tabs 10/10/22 10/28/22 10/27/22 Rx metronidazole 500 mg tablet 500 mg PO BID #14 tabs 10/10/22 10/28/22 Unknown Rx blood sugar diagnostic (Accutrend #200 ea 10/24/22 10/24/22 Unknown Rx Glucose test strips) blood-glucose meter (Advocate #1 ea 10/24/22 10/24/22 Unknown Rx Blood Glucose Monitor) lancets (Comfort Lancets) #200 ea 10/24/22 10/24/22 Unknown Rx metoclopramide HCl 10 mg tablet 10 mg PO Q6H PRN nausea and 10/24/22 10/28/22 Unknown Rx (Reglan) vomiting #30 tabs ondansetron HCl 4 mg tablet 4 mg PO Q6H #30 tabs 10/24/22 10/28/22 Unknown Rx Allergies Allergy/AdvReac Type Severity Reaction Status Date / Time strawberry Allergy Severe Anaphylaxis Verified 10/24/22 10:48 Penicillins Allergy Unknown Verified 10/24/22 10:48 PFSH FIELD ACCOUNT MANAGER PFSH: Medical History Cannabis use disorder, mild, abuse was using at night for sleep and anxiety, but stopped in March 2022. Generalized anxiety disorder Hx of cryosurgery, cervix, complicating (~2011) performed in [place] Major depressive disorder, recurrent severe without psychotic features Nicotine dependence, cigarettes, uncomplicated Nightmare disorder No pertinent past medical history neghx: htn,dm,thyroid,dvt/pe PCP: None Post-traumatic stress disorder, chronic Psychiatric care Family History Family/Other Breast cancer Maternal Great aunt-- dx age unknown Denies family history of Colon cancer Ovarian cancer Diabetes Heart disease Hypercholesteremia Hypertension Uterine cancer Thyroid disease Stroke History History History 5 Term 2 2 Miscarriages/Ectopic 0 Living Children 4 Care CHAN Calculator Estimated Delivery Date Method Current WG Current Estimate 12/25/22 Ultrasound #1 31w 5d Vitals/I&O/Wt Last Vital Signs Pulse 75 10/28/22 13:26 BP 118/78 10/28/22 13:26 Weight last 48 hrs Weight 61.689 kg Physical Exam Narrative: 27-year-old female alert and orient x3 no acute distress. HENMT: COMMON NORMALS: normocephalic and moist oral mucous membranes Resp: COMMON NORMALS: normal respiratory effort and clear to auscultation bilaterally Cardio: COMMON NORMALS: regular rate and regular rhythm Back/Pelvis: OTHER: Pelvic exam?cervix closed/long/posterior. Extremity: NARRATIVE EXTREMITY EXAM: Negative for edema, negative Homans' sign GENERAL: Yes normal exam except as noted Neuro: COMMON NORMALS: CN's II-XII intact bilaterally A&P Assessment and plan (1) Gestational diabetes: (2) GBS bacteriuria: (3) Supervision of other high-risk : (4) History of delivery: (5) History of hemorrhage: (6) Hx of cryosurgery, cervix, complicating : (7) Post-traumatic stress disorder, chronic: (8) Generalized anxiety disorder: (9) Major depressive disorder, recurrent severe without psychotic features: (10) Nicotine dependence, cigarettes, uncomplicated: (11) Nightmare disorder: Plan A. 1. 31.5-week IUP 2. Premature rupture membranes 3. GBS bacteriuria 4. History of deliveries x2 5. GDM?failed 50 g 6. History of hemorrhage 7. History of anxiety disorder and depression 8. Tobacco abuse during P. 1. Admit patient for observation for premature rupture membranes at 31.5 weeks 2. ACTIM-to check rupture of membranes 3. Start IV LR 4. Clindamycin 900 IV piggyback for positive GBS status 5. 4 g magnesium sulfate bolus followed by 2 g maintenance IV 6. Betamethasone 12 mg IM 7. Routine lab 8. Prepare patient for transfer to high risk center for premature rupture of membranes for high risk services needed to include NICU. Attestations Medical Necessity Statement*: Patient observed for premature rupture of membranes. Will transfer to high risk facility... Coding Level of Care Code Acute [facility] History Problem Focused Exam Detailed Medical Decision Making Moderate Complexity Diagnoses Gestational diabetes O24.419 GBS bacteriuria R82.71 Supervision of other high-risk O09.899 History of delivery Z87.51 History of hemorrhage Z87.59 Hx of cryosurgery, cervix, complicating O34.40; Z98.890 Post-traumatic stress disorder, chronic F43.12 Generalized anxiety disorder F41.1 Major depressive disorder, recurrent severe without psychotic features F33.2 Nicotine dependence, cigarettes, uncomplicated F17.210 Nightmare disorder F51.5
[2022-10-28] MEDS: betamethasone susp 6 mg/mL 5 mL 12 MG IM (13:59)
[2022-10-28] MEDS: terbutaline 1 mg/mL INJ 0.25 MG SUBCUT (13:59)
[2022-10-28] MEDS: clindamycin 900 MG/50 ML PREMIX 100 MG IV (14:05)
[2022-10-28] MEDS: dextrose 5%-lactated ringers 1,000 ML 125 ML IV (14:05)
[2022-10-28] MEDS: magnesium sulfate premix 4 GM/100 ML PREMIX IV (14:06)
[2022-10-28 14:17] LABS: Basophils # 0.1 10^3/uL (0.0-0.1); Basophils % 0.7 %; Eosinophils # 0.2 10^3/uL (0.0-0.8); Eosinophils % 1.5 %; Hematocrit 37.3 % (37.0-47.0); Hemoglobin 12.5 g/dL (11.5-15.3); Lymphocytes % 14.7 %; Mean Corpuscular HGB Conc 33.5 g/dL (30.0-36.0); Mean Corpuscular Hemoglobin 30.8 pg (28.0-34.0); Mean Corpuscular Volume 91.9 fl (81-99); Mean Platelet Volume 10.6 fL (7.4-10.4); Monocytes # 0.7 10^3/uL (0.2-0.9); Monocytes % 4.9 %; Neutrophils # 10.54 10^3/uL (1.8-7.7); Neutrophils % 76.9 %; Nucleated Red Blood Cells % 0 %; Platelet Count 229 10^3/cmm (130-400); Red Blood Count 4.06 10^6/uL (4.1-5.3); Red Cell Distribution Width 13.2 % (12.1-15.1); White Blood Count 13.7 10^3/uL (4.0-10.0)
--- NOTE | 2022-10-28 14:22 | PC.NURSE ---
[facility] called for pre auth for EMS transport at 1422 trip number [phone]
[2022-10-28] MEDS: magnesium sulfate premix 20 GM/500 ML BAG IV (14:26)
--- NOTE | 2022-10-28 14:40 | PM.TDS ---
Transfer Summary Providers Date of Admission: 10/28/2022 Date of Discharge/Transfer: 10/28/22 Attending Provider at Admission: Dr Edyta Smith Attending Provider at Transfer: Edyta Smith DO Primary Care Provider: Minesh Lobo MD Transfer Plans: Anticipated date of transfer: 10/28/22. Diagnoses at Discharge Discharge Diagnosis (1) Gestational diabetes: Status: Acute (2) GBS bacteriuria: Status: Acute (3) Supervision of other high-risk : Status: Acute (4) History of delivery: Status: Acute (5) History of hemorrhage: Status: Acute (6) Hx of cryosurgery, cervix, complicating : Status: Acute Permanent problem details: performed in [place] (7) Post-traumatic stress disorder, chronic: Status: Acute (8) Generalized anxiety disorder: Status: Acute (9) Major depressive disorder, recurrent severe without psychotic features: Status: Acute (10) Nicotine dependence, cigarettes, uncomplicated: Status: Acute (11) Nightmare disorder: Status: Acute Reason for Visit Reason for Visit POSSIBLE RUPTURE OF MEMBRANES Hospital Course Hospital Course 27-year-old female G5, P4 at 31.5 weeks gestation admitted for observation at [facility] with complaint of spontaneous rupture of membranes at 11 AM today. After external monitoring and testing for ruptured membranes ACTIM result positive, therefore patient was prepared for transfer to high risk facility OB services and for NICU services. IV fluids as well as terbutaline 0.25 mg subcu, magnesium sulfate bolus and maintenance of 2 g IV, clindamycin 900 mg IV piggyback were all initiated. Patient was also given betamethasone 12 mg IM. Patient elected to be transferred to [facility] in [facility]. OB hospitalist- Dr Carmona was contacted and accepted transfer of this patient after report. TS Data Studies Completed and Pending Pending at discharge Category Date Time Status Comprehensive Metabolic Panel Stat Lab 10/28/22 13:45 Received Drug Screen, Urine Stat Lab 10/28/22 13:45 Received Magnesium Level (OB Only) Q6H Lab 10/28/22 20:00 Uncollected UASCOPE [Urinalysis and Microscopic] Stat Lab 10/28/22 13:45 Received Labs from last 24 hours 10/28/22 10/28/22 10/28/22 13:45 13:45 13:45 WBC 13.7 H RBC 4.06 L Hgb 12.5 Hct 37.3 MCV 91.9 MCH 30.8 MCHC 33.5 RDW 13.2 Plt Count 229 MPV 10.6 H Neut % (Auto) 76.9 Lymph % (Auto) 14.7 [place] % (Auto) 4.9 Eos % (Auto) 1.5 Baso % (Auto) 0.7 Neut # (Auto) 10.54 H Lymph # (Auto) 2.0 [place] # (Auto) 0.7 Eos # (Auto) 0.2 Baso # (Auto) 0.1 Nucleated RBC % (auto) 0 Nucleated RBCs # 0.0 Sodium Potassium Chloride Carbon Dioxide Anion Gap BUN Creatinine GFR Calculation Glucose Calculated Osmolality Calcium Total Bilirubin AST ALT Alkaline Phosphatase Total Protein Albumin Globulin Insulin-like GF I Urine Color Pending Urine Appearance Pending Urine pH Pending Ur Specific [place] Pending Urine Protein Pending Urine Glucose (UA) Pending Urine Ketones Pending Urine Blood Pending Urine Nitrate Pending Urine Bilirubin Pending Urine Urobilinogen Pending Ur Leukocyte Esterase Pending Urine RBC Pending Urine WBC Pending Ur Squamous Epith Cells Pending Amorphous Sediment Not Reportable Urine Bacteria Pending Urine Opiates Screen Pending Ur Barbiturates Screen Pending Ur Phencyclidine Scrn Pending Ur Amphetamines Screen Pending U Benzodiazepines Scrn Pending Urine Cocaine Screen Pending U Marijuana (THC) Screen Pending 10/28/22 10/28/22 13:45 13:11 WBC RBC Hgb Hct MCV MCH MCHC RDW Plt Count MPV Neut % (Auto) Lymph % (Auto) [place] % (Auto) Eos % (Auto) Baso % (Auto) Neut # (Auto) Lymph # (Auto) [place] # (Auto) Eos # (Auto) Baso # (Auto) Nucleated RBC % (auto) Nucleated RBCs # Sodium Pending Potassium Pending Chloride Pending Carbon Dioxide Pending Anion Gap Pending BUN Pending Creatinine Pending GFR Calculation Pending Glucose Pending Calculated Osmolality Pending Calcium Pending Total Bilirubin Pending AST Pending ALT Pending Alkaline Phosphatase Pending Total Protein Pending Albumin Pending Globulin Pending Insulin-like GF I Positive Urine Color Urine Appearance Urine pH Ur Specific [place] Urine Protein Urine Glucose (UA) Urine Ketones Urine Blood Urine Nitrate Urine Bilirubin Urine Urobilinogen Ur Leukocyte Esterase Urine RBC Urine WBC Ur Squamous Epith Cells Amorphous Sediment Urine Bacteria Urine Opiates Screen Ur Barbiturates Screen Ur Phencyclidine Scrn Ur Amphetamines Screen U Benzodiazepines Scrn Urine Cocaine Screen U Marijuana (THC) Screen Laboratory Last Values WBC 13.7 10^3/uL (4.0-10.0) H 10/28/22 13:45 RBC 4.06 10^6/uL (4.1-5.3) L 10/28/22 13:45 Hgb 12.5 g/dL (11.5-15.3) 10/28/22 13:45 Hct 37.3 % (37.0-47.0) 10/28/22 13:45 MCV 91.9 fl (81-99) 10/28/22 13:45 MCH 30.8 pg (28.0-34.0) 10/28/22 13:45 MCHC 33.5 g/dL (30.0-36.0) 10/28/22 13:45 RDW 13.2 % (12.1-15.1) 10/28/22 13:45 Plt Count 229 10^3/cmm (130-400) 10/28/22 13:45 MPV 10.6 fL (7.4-10.4) H 10/28/22 13:45 Neut % (Auto) 76.9 % 10/28/22 13:45 Lymph % (Auto) 14.7 % 10/28/22 13:45 [place] % (Auto) 4.9 % 10/28/22 13:45 Eos % (Auto) 1.5 % 10/28/22 13:45 Baso % (Auto) 0.7 % 10/28/22 13:45 Neut # (Auto) 10.54 10^3/uL (1.8-7.7) H 10/28/22 13:45 Lymph # (Auto) 2.0 10^3/uL (0.8-4.8) 10/28/22 13:45 [place]aden # (Auto) 0.7 10^3/uL (0.2-0.9) 10/28/22 13:45 Eos # (Auto) 0.2 10^3/uL (0.0-0.8) 10/28/22 13:45 Baso # (Auto) 0.1 10^3/uL (0.0-0.1) 10/28/22 13:45 Nucleated RBC % (auto) 0 % 10/28/22 13:45 Nucleated RBCs # 0.0 /100WBC 10/28/22 13:45 Insulin-like GF I Positive 10/28/22 13:11 Amorphous Sediment Not Reportable 10/28/22 13:45 Recent Clincial Data Last Vital Signs Temp 97.4 F L 10/28/22 14:25 Pulse 99 10/28/22 14:33 Resp 16 10/28/22 13:14 BP 124/67 10/28/22 14:26 Pulse Ox 100 10/28/22 14:33 Vital Signs Temp Pulse Resp BP Pulse Ox 10/28/22 13:14 16 10/28/22 14:33 99 100 10/28/22 14:28 100 100 10/28/22 14:26 105 H 124/67 10/28/22 14:25 97.4 F L 10/28/22 14:23 100 100 10/28/22 14:18 101 H 100 10/28/22 14:13 88 100 10/28/22 14:12 89 124/71 10/28/22 14:08 94 100 10/28/22 14:09 95 93 10/28/22 13:56 85 127/87 10/28/22 13:14 16 10/28/22 13:42 92 137/91 10/28/22 13:26 75 118/78 10/28/22 13:11 93 124/82 Intake & Output/Weight 10/26/22 10/27/22 10/28/22 10/29/22 06:59 06:59 06:59 06:59 Weight 61.689 kg Vitals Last Vital Signs Temp 97.4 F L 10/28/22 14:25 Pulse 99 10/28/22 14:33 Resp 16 10/28/22 13:14 BP 124/67 10/28/22 14:26 Pulse Ox 100 10/28/22 14:33 TS Medications Medications Acetaminophen (Acetaminophen 325 Mg Tablet) 650 mg PO Q6H PRN PRN Reason: Mild pain or temp > 100.4 Al Hydrox/Mg Hydrox/Simethicone (Rwlq-Fde-Zstqvetda-Thomas 30 Ml Udc) 30 ml PO Q4H PRN PRN Reason: INDIGESTION Betamethasone Acet/Betameth SodPhos (Betamethasone Susp 6 Mg/Ml 5 Ml) 12 mg IM Q24H [facility] Stop: 10/29/22 13:46 Last Admin: 10/28/22 13:59 Dose: 12 mg Carboprost Tromethamine (Carboprost Tromethamine 250 Mcg/Ml Amp) 250 mcg IM ONCE PRN PRN Reason: 3rd line bleeding Ephedrine Sulfate (Ephedrine 50 Mg/Ml Inj) 10 mg IVP Q3M PRN PRN Reason: hypotension as directed by Hydroxyzine Pamoate (Hydroxyzine 25 Mg Capsule) 50 mg PO QID PRN PRN Reason: sleep, agitation or itching Dextrose/Lactated Ringer's (Dextrose 5%-Lactated Ringers) 1,000 mls @ 125 mls/hr IV .Q8H [facility] Oxytocin (Pitocin) 30 unit in 500 mls @ 600 mls/hr IV .Q50M PRN; Protocol PRN Reason: After delivery of infant Lactated Ringer's (Lactated Ringers) 1,000 mls @ 999 mls/hr IV .Q1H1M PRN PRN Reason: BLEEDING Lactated Ringer's (Lactated Ringers) 1,000 mls @ 999 mls/hr IV .Q1H1M PRN PRN Reason: Per L&D Rescitation Protocol Tranexamic Acid 1,000 mg/ (Sodium Chloride) 110 mls @ 330 mls/hr IV Q30M PRN PRN Reason: BLEEDING Clindamycin HCl/Dextrose (Cleocin) 900 mg in 50 mls @ 100 mls/hr IV Q8H [facility]; Protocol Last Admin: 10/28/22 14:05 Dose: 100 mls/hr Dextrose/Lactated Ringer's (Dextrose 5%-Lactated Ringers) 1,000 mls @ 125 mls/hr IV .Q8H [facility] Last Admin: 10/28/22 14:05 Dose: 125 mls/hr Magnesium Sulfate (Magnesium Sulfate Premix) 20 gm in 500 mls @ 50 mls/hr IV .Q10H [facility] Last Admin: 10/28/22 14:26 Dose: 50 mls/hr Lidocaine HCl (Lidocaine 2% Inj 20 Ml) 0 ml INJECTION ONCE PRN PRN Reason: perineum repair after delivery Lidocaine HCl (Lidocaine 1% Inj 20 Ml) 0.1 ml INTRADERMA PRN PRN PRN Reason: Anesthetic Prior to IV start Methylergonovine Maleate (Methylergonovine 0.2 Mg/Ml Inj 1 Ml) 0.2 mg IM Q20M PRN PRN Reason: 2nd line bleeding Metoclopramide HCl (Metoclopramide 5 Mg/Ml Sdv 2 Ml) 10 mg IV ONCE PRN PRN Reason: N/V not relieved by zofran Misoprostol (Misoprostol 200 Mcg Tablet) 800 mcg LA ONCE PRN PRN Reason: 1st line bleeding Ondansetron HCl (Ondansetron 2 Mg/Ml Sdv 2 Ml) 4 mg IVP Q4H PRN PRN Reason: NAUSEA AND VOMITING Oxytocin (Oxytocin 10 Unit/Ml Sdv 1 Ml) 20 unit IM ONCE PRN PRN Reason: 4th line bleeding Oxytocin (Oxytocin 10 Unit/Ml Sdv 1 Ml) 20 unit IV ONCE PRN PRN Reason: 4th line bleeding Discontinued Medications Magnesium Sulfate (Magnesium Sulfate Premix) 4 gm in 100 mls @ 300 mls/hr IV ONCE ONE Stop: 10/28/22 14:11 Last Admin: 10/28/22 14:06 Dose: 300 mls/hr Terbutaline Sulfate (Terbutaline 1 Mg/Ml Inj) 0.25 mg SUBCUT ONCE ONE Stop: 10/28/22 13:39 Last Admin: 10/28/22 13:59 Dose: 0.25 mg Allergies strawberry Allergy (Severe, Verified 10/24/22 10:48) Anaphylaxis Penicillins Allergy (Verified 10/24/22 10:48) Unknown She has never taken [facility] Home Medications prenat.vits,giulia,szo-srdf-exave 1 tab PO DAILY 05/10/22 [History Confirmed 10/28/22] duloxetine 60 mg capsule,delayed release 60 mg PO DAILY #90 caps 06/04/22 [Rx Confirmed 10/28/22] trazodone 50 mg tablet 50 mg PO DAILY PRN Anxiety 07/13/22 [History Confirmed 10/28/22] hydroxyprogesterone cap(ppres) 250 mg/mL IM oil (Olesya) mg IM .WEEKLY 08/01/22 [History Confirmed 10/24/22] ciprofloxacin HCl 500 mg tablet 500 mg PO BID #20 tabs 10/10/22 [Rx Confirmed 10/28/22] metronidazole 500 mg tablet 500 mg PO BID #14 tabs 10/10/22 [Rx Confirmed 10/28/22] blood sugar diagnostic (Accutrend Glucose test strips) #200 ea 10/24/22 [Rx Confirmed 10/24/22] blood-glucose meter (Advocate Blood Glucose Monitor) #1 ea 10/24/22 [Rx Confirmed 10/24/22] lancets (Comfort Lancets) #200 ea 10/24/22 [Rx Confirmed 10/24/22] metoclopramide HCl 10 mg tablet (Reglan) 10 mg PO Q6H PRN nausea and vomiting #30 tabs 10/24/22 [Rx Confirmed 10/28/22] ondansetron HCl 4 mg tablet 4 mg PO Q6H #30 tabs 10/24/22 [Rx Confirmed 10/28/22] Discharge Plan Discharge Patient Disposition: Home Prescriptions: No Action trazodone 50 mg tablet 50 mg PO DAILY PRN (Reason: Anxiety) prenat.vits,giulia,zlu-etkl-gztcz Tablet 1 tab PO DAILY duloxetine 60 mg capsule,delayed release(DR/EC) 60 mg PO DAILY Qty: 90 4RF hydroxyprogesterone cap(ppres) [[place]] 250 mg/mL oil IM .WEEKLY ondansetron HCl 4 mg tablet 4 mg PO Q6H Qty: 30 2RF metoclopramide HCl [Reglan] 10 mg tablet 10 mg PO Q6H PRN (Reason: nausea and vomiting) Qty: 30 2RF (DME) blood-glucose meter [Advocate Blood Glucose Monitor] Misc See Rx Instructions .Route Qty: 1 0RF Rx Instructions: As directed (DME) Accutrend Glucose test strips Strip See Rx Instructions .Route Qty: 200 0RF Rx Instructions: As directed (DME) lancets [Comfort Lancets] Misc See Rx Instructions .Route Qty: 200 0RF Rx Instructions: As directed metronidazole 500 mg tablet 500 mg PO BID Qty: 14 0RF ciprofloxacin HCl 500 mg tablet 500 mg PO BID Qty: 20 0RF Transfer Attestations Time Spent in Transfer Care: greater than 30 min Quality Metrics Clinical Quality Measures [ No reported AMI, CVA or VTE this stay] Coding Level of Care Code Acute [facility] Fwd Medical Decision Making Straight Forward Diagnoses Gestational diabetes O24.419 GBS bacteriuria R82.71 Supervision of other high-risk O09.899 History of delivery Z87.51 History of hemorrhage Z87.59 Hx of cryosurgery, cervix, complicating O34.40; Z98.890 Post-traumatic stress disorder, chronic F43.12 Generalized anxiety disorder F41.1 Major depressive disorder, recurrent severe without psychotic features F33.2 Nicotine dependence, cigarettes, uncomplicated F17.210 Nightmare disorder F51.5
[2022-10-28 14:47] LABS: Amphetamines Screen Urine Negative (Negative); Barbiturates Screen Urine Negative (Negative); Benzodiazepines Screen Urine Negative (Negative); Cocaine Screen Urine Negative (Negative); Opiate Screen Urine Negative (Negative); PCP Screen Urine Negative (Negative); THC Screen Urine Negative (Negative)
[2022-10-28 14:56] LABS: Bilirubin Urine Neg (Negative); Blood Urine Neg (Negative); Glucose Urine UA Norm (Normal); Ketones Urine Negative (Negative); Leukocyte Esterase Urine Negative (Negative); Nitrate Urine Negative (Negative); Protein Urine Neg (Negative); Sulfosalicylic Acid Urine Negative (Negative); Urine Appearance Cloudy (CLEAR); Urine Color Yellow (Yellow); Urobilinogen Urine Norm (Negative); pH Urine 8 (5-7)
[2022-10-28 14:57] LABS: Bacteria Urine 1+ /hpf; Squamous Epithelial Cell Urine 0-4 /hpf (0-5)
[2022-10-28 14:58] LABS: Add Urine Culture? No
[2022-10-28 15:03] LABS: Alanine Aminotransferase 19 U/L (0-33); Albumin Level 4.1 g/dL (3.5-5.2); Alkaline Phosphatase 78 U/L (35-105); Anion Gap 14.8 (5-19); Aspartate Amino Transferase 19 U/L (0-32); Blood Urea Nitrogen 6 mg/dL (6-20); Calcium 10.4 mg/dL (8.5-10.5); Carbon Dioxide 24 mmol/L (22-29); Chloride 100 mmol/L (98-107); Globulin 3.5 g/dL (1.3-4.6); Glomerular Filtration Rate 188.7 mL/min (90-130); Glucose 77 mg/dL (65-115); Osmolality Calculated 276 mOsm/kg (285-295); Potassium 3.8 mmol/L (3.5-5.1); Sodium 135 mmol/L (136-145); Total Bilirubin 0.2 mg/dL (0.15-1.2); Total Protein 7.6 g/dL (6.6-8.7)
--- NOTE | 2022-10-28 15:53 | PC.NURSE ---
care transferred to EMS at 1452 EMS left unit at 1500
== END 2022-10-28 15:00 | disposition intermediate care facility (04) ==
LOC: OPOB 13:03 → OBGYN 13:03
PROVIDERS: Absent Provider Obstetrics & Gynecology; PCP Family Medicine; Visit Provider Obstetrics & Gynecology
DX: O24.419 Gestational diabetes mellitus in pregnancy, unspecified control (principal); Z3A.31 31 weeks gestation of pregnancy; Z87.59 Personal history of other complications of pregnancy, childbirth and the puerperium; Z87.51 Personal history of pre-term labor; O99.333 Smoking (tobacco) complicating pregnancy, third trimester; O99.343 Other mental disorders complicating pregnancy, third trimester; R82.71 Bacteriuria
CPT/HCPCS: 12345; 36415; 51702; 59025; 80053; 80306; 81001; 83986; 84112; 85025; 96372; 99211; J0702; J3105; J3475; J3490; J7121

== ENCOUNTER 2022-11-07 15:37 | Outpatient (CLI) | payer BC, MEDICAID, SELFPAY ==
[2022-11-07 15:40] VITALS: BP 112/73; PULSE 83; BMI 21.9
[2022-11-07 15:41] VITALS: RESP 15
--- NOTE | 2022-11-07 15:41 | USR_ITS ---
PROCEDURE INFORMATION: Exam: US Biophysical Profile Without Non-Stress Test Exam date and time: 11/07/2022 4:10 PM Age: 27 years old Clinical indication: Condition or disease; Other: Prom; ; Additional info: Bpp with yuan for previous rom, resolved. TECHNIQUE: Imaging protocol: US biophysical profile without non-stress testing. COMPARISON: US OB >= 14 weeks fetus [facility] 08/14/2022 10:50 AM FINDINGS: heart rate: 150 bpm presentation: Cephalic Placenta: Fundal grade 2 placenta without previa. Amniotic fluid index: YUAN is 12.6 cm. BIOPHYSICAL PROFILE: breathing movement (BPP): 2/2 body movement (BPP): 2/2 tone (BPP): 2/2 Amniotic fluid (BPP): 2/2 Biophysical profile score (BPP): 8/8 US/US OB BPP NST 25928 IMPRESSION: Biophysical profile score equals 8/8.
[2022-11-07 15:55] VITALS: BP 114/78; PULSE 84
--- NOTE | 2022-11-07 16:38 | PC.NURSE ---
BPP results from /s [facility] were 05/28, YAUN of 12.6, FHR 151. Per Dr. Quick she may discharge. THEA RN
== END 2022-11-07 16:39 | disposition home or self-care (01) ==
LOC: OPOB 15:38 → OBGYN 15:39
PROVIDERS: PCP Family Medicine; Visit Provider Obstetrics & Gynecology
DX: O26.899 Other specified pregnancy related conditions, unspecified trimester (principal); Z3A.00 Weeks of gestation of pregnancy not specified
CPT/HCPCS: 59025; 76819; 81000; 87086; 99211

== ENCOUNTER → 2022-11-16 15:18 | Outpatient (BNVA) | payer BC, MEDICAID, SELFPAY | PROVIDERS: PCP Family Medicine; Visit Provider Obstetrics & Gynecology | DX: O09.899 Supervision of other high risk pregnancies, unspecified trimester (principal); O24.419 Gestational diabetes mellitus in pregnancy, unspecified control | CPT/HCPCS: 81000 ==

== ENCOUNTER 2022-11-24 13:28 | Outpatient (CLI) | payer BC, MEDICAID, SELFPAY ==
[2022-11-24] VITALS (43 sets, daily range): BP systolic 96–124; BP diastolic 59–79; PULSE 66–93; RESP 16; TEMP 36.1; BMI 21.9
[2022-11-24] MEDS: lactated ringers 1,000 ML 999 ML IV (14:45)
[2022-11-24 15:18] LABS: Add Urine Culture? No; Bacteria Urine TRACE /hpf; Bilirubin Urine Neg (Negative); Blood Urine Neg (Negative); Glucose Urine UA Norm (Normal); Ketones Urine 2+ (Negative); Leukocyte Esterase Urine Negative (Negative); Nitrate Urine Negative (Negative); Protein Urine Neg (Negative); Squamous Epithelial Cell Urine 0-4 /hpf (0-5); Sulfosalicylic Acid Urine Negative (Negative); Urine Appearance Clear (CLEAR); Urine Color Yellow (Yellow); Urobilinogen Urine Norm (Negative); WBC Urine 0-4 /hpf (0-5); pH Urine 8 (5-7)
[2022-11-24 15:28] LABS: Actim Prom Negative
[2022-11-24] MEDS: NIFEdipine 10 mg Capsule PO (21:29)
[2022-11-25] VITALS (27 sets, daily range): BP systolic 99–117; BP diastolic 54–68; PULSE 59–96; RESP 16; TEMP 36.9
--- NOTE | 2022-11-25 07:42 | PC.NURSE ---
Called procardia 10mg once daily to [place] per patient request.
--- NOTE | 2022-11-26 02:09 | PM.OBGYHP ---
Providers/Chief Complaint Admitting Physician: Juan Pablo Navarro M.D. Primary BANKRUPTCY LAW SPECIALIST: Cuong Quick M.D. Primary Care Provider: Minesh Lobo MD Chief Complaint: contractions HPI BANKRUPTCY LAW SPECIALIST History of Present Illness Ermelinda Julian is a 27 year old female November 24, 2022, 0950 27 y.o.? EDC? December 25, 2022 At 35 w [address] Quick Presented c/o painful UCs and fluid leakage Had h/o SROM at 31-32 weeks, confirmed at that time by ACTIM ? Was transferred to [facility] at [place] ? Was discharged with dx of SPROM, but had stopped leaking and subsequent negative ACTIMs No recent complications with this + active movements No bleeding, spotting h/o deliveries with prior pregnancies at 34-35 weeks received celestone during this Exam:?comfortable, awake, alert ? VS? normal ? Abd:? soft, nontender ?Spec:? ACTIM done ?No fluid seen ? Cx:? FT ? 1 cm / 50% / -3 / posterior ? Ext:? no edema External monitor:? + UCs 1 q 15 minutes ? heart tracing good variability, + accelerations UA?negative A/P: 35 w 4 d UCs Possible PSROM,? ACTIM pending fetus reassuring Plan IV hydration Patient refused Procardia Plan expectant management for now Present Details : 5 Para: 4 Date of Last Menstrual Period: 03/22/22 Calculated Date of Delivery: 12/27/22 Gestational Age Based on Last Menstrual Period: 35 Medications/Allergies Home Medications Medication Instructions Recorded Confirmed Last Taken Type prenat.vits,giulia,dts-bkoq-xulic 1 tab PO DAILY 05/10/22 11/16/22 1 Day Ago History ~11/06/22 duloxetine 60 mg capsule,delayed 60 mg PO DAILY #90 caps 06/04/22 11/16/22 1 Day Ago Rx release ~11/06/22 trazodone 50 mg tablet 50 mg PO DAILY PRN Anxiety 07/13/22 11/16/22 10/25/22 History hydroxyprogesterone cap(ppres) 250 mg IM .WEEKLY 08/01/22 11/16/22 11/02/22 History mg/mL IM oil (Foreman) blood sugar diagnostic (Accutrend #200 ea 10/24/22 11/16/22 Unknown Rx Glucose test strips) blood-glucose meter (Advocate #1 ea 10/24/22 11/16/22 Unknown Rx Blood Glucose Monitor) lancets (Comfort Lancets) #200 ea 10/24/22 11/16/22 Unknown Rx metoclopramide HCl 10 mg tablet 10 mg PO Q6H PRN nausea and 10/24/22 11/16/22 Unknown Rx (Reglan) vomiting #30 tabs ciprofloxacin HCl 500 mg tablet 500 mg PO BID #28 tabs 11/12/22 11/16/22 Unknown Rx (Cipro) Allergies Allergy/AdvReac Type Severity Reaction Status Date / Time strawberry Allergy Severe Anaphylaxis Verified 11/16/22 15:45 Penicillins Allergy Unknown Verified 11/16/22 15:45 PFS BANKRUPTCY LAW SPECIALIST PFSH: Medical History Cannabis use disorder, mild, abuse was using at night for sleep and anxiety, but stopped in March 2022. Generalized anxiety disorder Hx of cryosurgery, cervix, complicating (~2011) performed in [place] Major depressive disorder, recurrent severe without psychotic features Nicotine dependence, cigarettes, uncomplicated Nightmare disorder No pertinent past medical history neghx: htn,dm,thyroid,dvt/pe PCP: None Post-traumatic stress disorder, chronic Psychiatric care Family History Family/Other Breast cancer Maternal Great aunt-- dx age unknown Denies family history of Colon cancer Ovarian cancer Diabetes Heart disease Hypercholesteremia Hypertension Uterine cancer Thyroid disease Stroke History History History 5 Term 2 2 Miscarriages/Ectopic 0 Living Children 4 Care CHAN Calculator Estimated Delivery Date Method Current WG Current Estimate 12/25/22 Ultrasound #1 35w 6d Vitals/I&O/Wt Last Vital Signs Temp 98.4 F 11/25/22 07:47 Pulse 83 11/25/22 07:47 Resp 16 11/25/22 07:47 BP 114/64 11/25/22 07:47 Weight last 48 hrs Weight 136 lb A&P Assessment and plan (1) Gestational diabetes: (2) GBS bacteriuria: (3) Supervision of other high-risk : (4) History of delivery: (5) History of hemorrhage: (6) Generalized anxiety disorder: (7) Major depressive disorder, recurrent severe without psychotic features: Attestations Medical Necessity Statement*: patient at 35 w 4 d with c/o uterine contractions and leakage of fluid. Coding Level of Care Code Acute Code for Chg Fwd Diagnoses Gestational diabetes O24.419 GBS bacteriuria R82.71 Supervision of other high-risk O09.899 History of delivery Z87.51 History of hemorrhage Z87.59 Generalized anxiety disorder F41.1 Major depressive disorder, recurrent severe without psychotic features F33.2
--- NOTE | 2022-11-26 02:15 | P.PN_ITS ---
SITE PROJECT MANAGER Subjective Subjective: Interval history: November 24, 2022, 1230 c/o painful UCs fetus reassuring ACTIM? negative for spontaneous rupture of membranes Repeat Cx:? unchanged at FT ? 1 cm / -3 / posterior A/P: 35 w 4 d c/o UCs repeat cervical exam unchanged at this time Continue expectant management Labor: Station: -3 Amniotic Membrane Status: Intact Monitor Mode: External Contraction Pattern: Irregular Status: Category I Vitals/I&O/Wt Last Vital Signs Temp 98.4 F 11/25/22 07:47 Pulse 83 11/25/22 07:47 Resp 16 11/25/22 07:47 BP 114/64 11/25/22 07:47 Weight last 48 hrs Weight 136 lb Attestations Medical Necessity Statement*: patient at 35 w 4 d c/o painful UCs. Coding Level of Care Code Acute Code for Chg Fwaaron
--- NOTE | 2022-11-26 02:38 | P.PN_ITS ---
CASHIER SUPERVISOR Subjective Subjective: Interval history: November 24, 20222119 Still c/o painful UCs, rates them as 6-7 out of 10 Fetus reassuring External monitor:?? + regular UCs Repeat cervical exam:?? FT ? 1 cm / 50% / -3 / posterior ? Unchanged from prior exams A/P: 35 w 4 d c/o painful UCs cervix unchanged discussed with patient these could be uterine irritability / early labor pains recommend Procardia 10 mg PO to see if this will help with the uterine irritability patient agrees will give Procardia 10 mg PO Labor: Station: -3 Amniotic Membrane Status: Intact Monitor Mode: External Contraction Pattern: Irregular Status: Category I Vitals/I&O/Wt Last Vital Signs Temp 98.4 F 11/25/22 07:47 Pulse 83 11/25/22 07:47 Resp 16 11/25/22 07:47 BP 114/64 11/25/22 07:47 Weight last 48 hrs Weight 136 lb Attestations Medical Necessity Statement*: patient at 35 w 4 d with c/o UCs Coding Level of Care Code Acute Code for Chg Fwd
--- NOTE | 2022-11-26 02:40 | PM.OBGYPN ---
TEACHING ARTIST Subjective Subjective: Interval history: November 25, 2022, 0635 Patient states her UCs are ?pretty much gone? Rested overnight Fetus reassuring Repeat Cervical exam:?? unchanged at FT ? 1 cm A/P: 35 w 5 d c/o UCs cervix unchanged plan discharge home plan continue Procardia 10 mg PO q6h f/u Dr. Quick in 1-2 days Labor precautions given Call/return if pain, bleeding, fluid leakage Labor: Station: -3 Amniotic Membrane Status: Intact Monitor Mode: External Contraction Pattern: Irregular Status: Category I Vitals/I&O/Wt Last Vital Signs Temp 98.4 F 11/25/22 07:47 Pulse 83 11/25/22 07:47 Resp 16 11/25/22 07:47 BP 114/64 11/25/22 07:47 Weight last 48 hrs Weight 136 lb Attestations Medical Necessity Statement*: patient at 35 w 5 d; c/o UCs; early labor pains, uterine irritability Coding Level of Care Code Acute Code for Chg Fwd
--- NOTE | 2022-11-26 02:41 | PM.OBGYDC ---
Discharge Providers ELECTRICAL DRAFTER Date of Admission: 11/24/22 Date of Discharge: 11/25/22 Attending Provider at Admission: Juan Pablo Navarro MD Attending Provider at Discharge: Juan Pablo Navarro MD Primary ELECTRICAL DRAFTER: Ben Quick M.D. Primary Care Provider: Minesh Lobo MD Diagnoses at Discharge Discharge Diagnosis (1) Gestational diabetes: Status: Acute (2) GBS bacteriuria: Status: Acute (3) Supervision of other high-risk : Status: Acute (4) History of delivery: Status: Acute (5) History of hemorrhage: Status: Acute (6) Generalized anxiety disorder: Status: Acute (7) Major depressive disorder, recurrent severe without psychotic features: Status: Acute (8) uterine contractions in third trimester, antepartum: Details from hospital stay: ACTIM negative for SPROM cervix unchanged Status: Acute Reason for Visit Reason for Visit: contractions Hospital Course Hospital Course patient's cervical exam remain unchanged ACTIM negative History History History 5 Term 2 2 Miscarriages/Ectopic 0 Living Children 4 Discharge Data Studies Completed and Pending Laboratory Results Insulin-like GF I Negative 11/24/22 15:01 Urine Color Yellow (Yellow) 11/24/22 14:10 Urine Appearance Clear (CLEAR) 11/24/22 14:10 Urine pH 8 (5-7) H 11/24/22 14:10 Ur Specific [place] 1.010 (1.005-1.030) 11/24/22 14:10 Urine Protein Neg (Negative) 11/24/22 14:10 Urine Glucose (UA) Norm (Normal) 11/24/22 14:10 Urine Ketones 2+ (Negative) H 11/24/22 14:10 Urine Blood Neg (Negative) 11/24/22 14:10 Urine Nitrate Negative (Negative) 11/24/22 14:10 Urine Bilirubin Neg (Negative) 11/24/22 14:10 Prot Sulfosalicylic Acd Negative (Negative) 11/24/22 14:10 Urine Urobilinogen Norm mg/dL (Negative) 11/24/22 14:10 Ur Leukocyte Esterase Negative (Negative) 11/24/22 14:10 Urine RBC None /hpf (0-2) 11/24/22 14:10 Urine WBC 0-4 /hpf (0-5) H 11/24/22 14:10 Ur Squamous Epith Cells 0-4 /hpf (0-5) H 11/24/22 14:10 Amorphous Sediment Not Reportable 11/24/22 14:10 Urine Bacteria Trace /hpf (NONE) 11/24/22 14:10 Vitals Last Vital Signs Temp 98.4 F 11/25/22 07:47 Pulse 83 11/25/22 07:47 Resp 16 11/25/22 07:47 BP 114/64 11/25/22 07:47 Discharge Plan Discharge Patient Disposition: Home Prescriptions: Continued trazodone 50 mg tablet 50 mg PO DAILY PRN (Reason: Anxiety) prenat.vits,giulia,afv-rdnb-durgz Tablet 1 tab PO DAILY duloxetine 60 mg capsule,delayed release(DR/EC) 60 mg PO DAILY Qty: 90 4RF hydroxyprogesterone cap(ppres) [Olesya] 250 mg/mL oil IM .WEEKLY metoclopramide HCl [Reglan] 10 mg tablet 10 mg PO Q6H PRN (Reason: nausea and vomiting) Qty: 30 2RF (DME) blood-glucose meter [Advocate Blood Glucose Monitor] Misc See Rx Instructions .Route Qty: 1 0RF Rx Instructions: As directed (DME) Accutrend Glucose test strips Strip See Rx Instructions .Route Qty: 200 0RF Rx Instructions: As directed (DME) lancets [Comfort Lancets] Misc See Rx Instructions .Route Qty: 200 0RF Rx Instructions: As directed ciprofloxacin HCl [Cipro] 500 mg tablet 500 mg PO BID Qty: 28 0RF Discharge Orders: Discharge Order (Routine); Ordered 11/25/22 Ordered By: Juan Pablo Navarro Referrals: Yamila Quick MD [Physician] - 11/29/22 10:15 am Patient Instructions: Labor (DC), Preeclampsia During (ED), Movement (DC), Kick Counts in (DC), Opioid Safety, OB Undelivered Discharge Activity Restrictions/Additional Instructions: Begin taking procardia 10mg once a day until follow up with Dr. Quick Discharge Date/Time: 11/25/22 07:16 Discharge Attestations ELECTRICAL DRAFTER Time Spent in Discharge Care*: greater than 30 min Status at Discharge: Overall status at discharge: patient is back to baseline Coding Level of Care Code Acute Code for Chg Fwd Diagnoses Gestational diabetes O24.419 GBS bacteriuria R82.71 Supervision of other high-risk O09.899 History of delivery Z87.51 History of hemorrhage Z87.59 Generalized anxiety disorder F41.1 Major depressive disorder, recurrent severe without psychotic features F33.2 uterine contractions in third trimester, antepartum O47.03
== END 2022-11-25 07:16 | disposition home or self-care (01) ==
LOC: OPOB 13:31 → OBGYN 13:32 → OPOB 17:23 → OBGYN 11-25 07:17 → OPOB 11-25 10:37
PROVIDERS: PCP Family Medicine; Visit Provider Obstetrics & Gynecology
DX: O24.419 Gestational diabetes mellitus in pregnancy, unspecified control (principal); Z3A.35 35 weeks gestation of pregnancy; R82.71 Bacteriuria; Z87.51 Personal history of pre-term labor; Z87.59 Personal history of other complications of pregnancy, childbirth and the puerperium; F41.1 Generalized anxiety disorder; F33.2 Major depressive disorder, recurrent severe without psychotic features; O47.03 False labor before 37 completed weeks of gestation, third trimester
CPT/HCPCS: 12345; 59025; 81001; 84112; 99211; G0378; J7120

== ENCOUNTER → 2022-11-29 14:25 | Outpatient (BNVA) | payer BC, MEDICAID, SELFPAY | PROVIDERS: PCP Family Medicine; Visit Provider Obstetrics & Gynecology | DX: O09.899 Supervision of other high risk pregnancies, unspecified trimester (principal) | CPT/HCPCS: 81000; 87081 ==

== ENCOUNTER 2022-12-05 16:04 | Inpatient (IN) | payer BC, MEDICAID, SELFPAY ==
[2022-12-05] VITALS (24 sets, daily range): BP systolic 108–131; BP diastolic 66–86; PULSE 57–90; RESP 15–16; TEMP 35.7–36.3; BMI 21.9
[2022-12-05 12:10] LABS: Nitrazine Paper, PH Negative
[2022-12-05 12:17] LABS: Actim Prom Negative
[2022-12-05 12:24] LABS: Add Urine Culture? No; Bilirubin Urine Neg (Negative); Blood Urine Neg (Negative); Glucose Urine UA Norm (Normal); Ketones Urine Negative (Negative); Leukocyte Esterase Urine Negative (Negative); Nitrate Urine Negative (Negative); Protein Urine Neg (Negative); Urine Appearance Clear (CLEAR); Urine Color Light yellow (Yellow); Urobilinogen Urine Neg (Negative); WBC Urine RARE /hpf (0-5); pH Urine 8 (5-7)
[2022-12-05 12:25] LABS: Amphetamines Screen Urine Negative (Negative); Barbiturates Screen Urine Negative (Negative); Benzodiazepines Screen Urine Negative (Negative); Cocaine Screen Urine Negative (Negative); Opiate Screen Urine Negative (Negative); PCP Screen Urine Negative (Negative); THC Screen Urine Negative (Negative)
[2022-12-05] MEDS: lactated ringers 1,000 ML 999 ML IV ×2 (12:30→23:56)
--- NOTE | 2022-12-05 14:05 | US_ITS ---
WS: [id number] BIOPHYSICAL PROFILE AMNIOTIC FLUID HISTORY: BPP WITH YUAN FOR DECELERATIONS COMPARISON: 11/29/2022 position: Vertex. Cardiac activity: 160 bpm. Cervix: Not visualized. Placenta: Fundal, no previa or abruption. Placenta grade: Late grade 2. Parameters are as follows: Breathin Movement: 2 Tone: 2 Fluid volume: 2 Amniotic Fluid Index: 8.4 cm; single deep vertical pocket 3.8 cm. US/US OB BPP [place]ST [address]884 IMPRESSION: 1. Biophysical profile score: 6/8. 2. Normal cardiac activity. 3. Low normal amniotic fluid index. Visually the amount of amniotic fluid appea rs normal.
[2022-12-05 16:08] LABS: Basophils # 0.1 10^3/uL (0.0-0.1); Basophils % 0.4 %; Eosinophils # 0.1 10^3/uL (0.0-0.8); Eosinophils % 0.9 %; Hemoglobin 12.8 g/dL (11.5-15.3); Lymphocytes # 2.1 10^3/uL (0.8-4.8); Lymphocytes % 15.6 %; Mean Corpuscular HGB Conc 35.6 g/dL (30.0-36.0); Mean Corpuscular Hemoglobin 30.9 pg (28.0-34.0); Monocytes # 0.7 10^3/uL (0.2-0.9); Monocytes % 5.2 %; Neutrophils # 10.27 10^3/uL (1.8-7.7); Neutrophils % 76.9 %; Nucleated Red Blood Cells % 0 %; Platelet Count 235 10^3/cmm (130-400); Red Blood Count 4.14 10^6/uL (4.1-5.3); Red Cell Distribution Width 13.2 % (12.1-15.1); White Blood Count 13.4 10^3/uL (4.0-10.0)
[2022-12-05] MEDS: dextrose 5%-lactated ringers 1,000 ML 125 ML IV (16:10)
--- NOTE | 2022-12-05 18:41 | PM.PN ---
Subjective Subjective: Ms. Julian is a 27 year old established patient with LMP of 03/02/22, and an CHAN of 12/25/21 based on her 7 week ultrasound placing her at 37+1 weeks. Vitals/I&O/Wt Last Vital Signs Temp 97.3 F L 12/05/22 18:33 Pulse 71 12/05/22 18:17 Resp 15 12/05/22 15:48 BP 124/84 12/05/22 18:17 O2 Del Method 12/05/22 16:42 12/05/22 12/05/22 12/05/22 06:59 14:59 22:59 Intake Total 1000 / 1000 Balance 1000 / 1000 Weight last 48 hrs Weight 61.689 kg Physical Exam Narrative: GA: Alert and oriented ?3. Lungs: Clear to auscultation bilaterally. Heart: Regular rhythm and rate. Abdomen: Gravid, full the height equals dates, nontender. TECHNICAL SERVICES COORDINATOR: SVE; dilation: 3-4 cm, effacement: 80%, station: -3, presentation: vx, membranes: AROM clear. Extremities: no edema, no cyanosis, no calves pain. heart tracing: Basal rate: 140's bpm, Variability: moderate, Accelerations: present, Decelerations: absent, Contraction: q3min. Data 12/05/22 12:30 A&P Assessment and plan (1) Supervision of other high-risk : Mrs. Belén Almanza 27-year-old female with an estimated gestational age at 37 weeks +1-day. Shows cervical changes progressed from 3 to 4 cm in dilation, with regular contractions every 3 minutes. At this time heart tracing category 1. She had previously shown tracing category 2. Scalp stimulation adequate. AROM with clear fluids. Anticipate vaginal delivery (2) Gestational diabetes: (3) GBS bacteriuria: (4) History of delivery: (5) History of hemorrhage: (6) Generalized anxiety disorder: (7) Major depressive disorder, recurrent severe without psychotic features: Attestations Medical Necessity Statement*: In my professional opinion per admitting diagnosis Coding Level of Care Code Acute Code for Chg Fwd Diagnoses Supervision of other high-risk O09.899 Gestational diabetes O24.419 GBS bacteriuria R82.71 History of delivery Z87.51 History of hemorrhage Z87.59 Generalized anxiety disorder F41.1 Major depressive disorder, recurrent severe without psychotic features F33.2
[2022-12-05 20:05] LABS: Glucose Point of Care 89 mg/dL (70-110)
[2022-12-05] MEDS: vancomycin 1,250 MG/250 ML PIGGYBACK 200 MG IV (20:21)
[2022-12-05] MEDS: hyDROXYzine 25 mg Capsule 50 MG PO (21:54)
[2022-12-05 22:54] LABS: Glucose Point of Care 96 mg/dL (70-110)
[2022-12-06] VITALS (54 sets, daily range): BP systolic 97–118; BP diastolic 52–78; PULSE 54–82; RESP 15–16; TEMP 35.9–37; O2SAT 96–99
[2022-12-06] MEDS: dextrose 5%-lactated ringers 1,000 ML 125 ML IV ×2 (02:14→09:48)
--- NOTE | 2022-12-06 04:11 | P.PN_ITS ---
Subjective Subjective: Ms. Julian is a 27 year old established patient with LMP of 03/02/22, and an CHAN of 12/25/21 based on her 7 week ultrasound placing her at 37+2 weeks. Vitals/I&O/Wt Last Vital Signs Temp 97.0 F L 12/05/22 23:06 Pulse 67 12/06/22 03:46 Resp 15 12/05/22 15:48 BP 116/72 12/06/22 03:46 O2 Del Method 12/05/22 16:42 12/05/22 12/05/22 12/06/22 14:59 22:59 06:59 Intake Total 1000 / 1000 250 / 1250 1472.417 / 2722.417 Balance 1000 / 1000 250 / 1250 1472.417 / 2722.417 Weight last 48 hrs Weight 61.689 kg Physical Exam Narrative: GA: Alert and oriented ?3. Lungs: Clear to auscultation bilaterally. Heart: Regular rhythm and rate. Abdomen: Gravid, full the height equals dates, nontender. TELETYPESETTER OPERATOR: SVE; dilation: 4-5 cm, effacement: 80%, station: -3, presentation: vx, membranes: AROM clear. Extremities: no edema, no cyanosis, no calves pain. heart tracing: Basal rate: 150 bpm, Variability: moderate, Accelerations: present, Decelerations: occasional variable, Contraction: q5min. Data 12/05/22 12:30 A&P Assessment and plan (1) Supervision of other high-risk : Mrs. Belén Almanza 27-year-old female with an estimated gestational age at 37 weeks +2day. Called by the nurse with the patient showing occasional variable decelerations, treated with intrauterine resuscitation with the exception of O2. When the nurse was instructed to start O2. The patient shows cervical changes progressed to 4 cm in dilation, with slower regular contractions every 5 minutes however. At this time heart tracing category 2 with occasional variable deceleration. scalp electrode was placed and showed good scalp stimulation response. Clear fluids. We will continue with continuous monitoring. (2) Gestational diabetes: (3) GBS bacteriuria: (4) History of delivery: (5) History of hemorrhage: (6) Generalized anxiety disorder: (7) Major depressive disorder, recurrent severe without psychotic features: Attestations Medical Necessity Statement*: In my professional opinion per admitting diagnosis Coding Level of Care Code Acute Code for Chg Fwd Diagnoses Supervision of other high-risk O09.899 Gestational diabetes O24.419 GBS bacteriuria R82.71 History of delivery Z87.51 History of hemorrhage Z87.59 Generalized anxiety disorder F41.1 Major depressive disorder, recurrent severe without psychotic features F33.2
[2022-12-06 04:20] LABS: Glucose Point of Care 95 mg/dL (70-110)
[2022-12-06] MEDS: vancomycin 1,250 MG/250 ML PIGGYBACK 150 MG IV (04:24)
[2022-12-06] MEDS: metoclopramide 5 mg/mL SDV 2 mL 10 MG IVP (07:07)
[2022-12-06] MEDS: citric acid-sodium citrate 30 mL UDC PO (07:07)
--- NOTE | 2022-12-06 07:07 | P.ANESASSM_ITS ---
Pre-Anesthetic Assessment Height/Weight: Height 1.68 m Weight 61.689 kg Temp Pulse Resp BP O2 Del Method 97.0 F L 59 L 15 115/77 12/06/22 05:37 12/06/22 06:46 12/05/22 15:48 12/06/22 06:46 12/05/22 16:42 Preop Diagnosis: nonreassuring heart tones Was Beta Maday taken within 24 hours: N/A Was Clonidine taken within 24 hours: N/A Last Intake: 19:00 Social Tobacco 1/2 ppd pack(s) per day Exam alert and oriented x 3 Airway Submandibular: within normal limits Cervical ROM: within normal limits Mallampati: Class II Dentition: full History/ROS No significant history except as noted Pulmonary None reported CV/HEM Hypertension (monitored during ) None reported Hepatic None reported GI None reported Metabolic Diabetes Mellitus (monitored during ) Musc/skel None reported Neuropsych None reported Anesthetic Plan ASA status: 2E Anesthesia: Regional (specify below) Other: backup general Risk of > 500 ml blood loss (7ml/kg in children): Yes, adequate IV access and fluids planned Medications/Allergies Home Medications Medication Instructions Recorded Confirmed Last Taken Type prenat.vits,giulia,wgo-ctnk-xeeqj 1 tab PO DAILY 05/10/22 12/05/22 12/04/22 18:00 History duloxetine 60 mg capsule,delayed 60 mg PO DAILY #90 caps 06/04/22 12/05/22 12/04/22 18:00 Rx release trazodone 50 mg tablet 50 mg PO DAILY PRN Anxiety 07/13/22 12/05/22 10/25/22 History blood sugar diagnostic (Accutrend #200 ea 10/24/22 11/29/22 Unknown Rx Glucose test strips) blood-glucose meter (Advocate #1 ea 10/24/22 11/29/22 Unknown Rx Blood Glucose Monitor) lancets (Comfort Lancets) #200 ea 10/24/22 11/29/22 Unknown Rx Allergies Allergy/AdvReac Type Severity Reaction Status Date / Time strawberry Allergy Severe Anaphylaxis Verified 11/29/22 13:18 Penicillins Allergy Unknown Verified 11/29/22 13:18 Current Medications Generic Name Dose Route Start Last Admin Trade Name Freq PRN Reason Stop Dose Admin Hydroxyzine Pamoate 50 mg 12/05/22 15:48 12/05/22 21:54 Hydroxyzine 25 Mg Capsule PO 50 mg QID PRN Administration sleep, agitation or itching Dextrose/Lactated Ringer's 1,000 mls @ 125 mls/hr 12/05/22 16:00 12/06/22 02:14 Dextrose 5%-Lactated Ringers IV 125 mls/hr .Q8H TORY Administration Lactated Ringer's 1,000 mls @ 999 mls/hr 12/05/22 15:48 12/06/22 05:45 Lactated Ringers IV Infused .Q1H1M PRN Infusion Per L&D Rescitation Protocol Vancomycin/PEG/NADA/Lysine/Water 1,250 mg in 250 mls @ 200 mls/hr 12/05/22 20:00 12/06/22 04:24 Vancocin IV 150 mls/hr Q8H TORY Administration Insulin Human Lispro 0 unit 12/05/22 21:00 12/05/22 23:12 Insulin Lispro 100 Unit/1 Ml SUBCUT Not Given WM&BEDTIME TORY Protocol [facility] Anesthesia Medical History Cannabis use disorder, mild, abuse was using at night for sleep and anxiety, but stopped in March 2022. Generalized anxiety disorder Hx of cryosurgery, cervix, complicating (~2011) performed in [place] Major depressive disorder, recurrent severe without psychotic features Nicotine dependence, cigarettes, uncomplicated Nightmare disorder No pertinent past medical history neghx: htn,dm,thyroid,dvt/pe PCP: None Post-traumatic stress disorder, chronic Psychiatric care Family History Family/Other Breast cancer Maternal Great aunt-- dx age unknown Denies family history of Colon cancer Ovarian cancer Diabetes Heart disease Hypercholesteremia Hypertension Uterine cancer Thyroid disease Stroke Female Reproductive History Date of last menstrual period: 03/22/22 : 5 Data Anesthesia 12/05/22 12:30 Short CBC 12/05/22 Range/Units 12:30 WBC 13.4 H (4.0-10.0) 10^3/uL Hgb 12.8 (11.5-15.3) g/dL Hct 36.0 L (37.0-47.0) % MCV 87.0 (81-99) fl Plt Count 235 (130-400) 10^3/cmm Neut % (Auto) 76.9 % Neut # (Auto) 10.27 H (1.8-7.7) 10^3/uL Urine 12/05/22 Range/Units 11:30 Urine Color Light yellow (Yellow) Urine Appearance Clear (CLEAR) Urine pH 8 H (5-7) Ur Specific [place] 1.010 (1.005-1.030) Urine Protein Neg (Negative) Urine Glucose (UA) Norm (Normal) Urine Ketones Negative (Negative) Urine Nitrate Negative (Negative) Urine Bilirubin Neg (Negative) Ur Leukocyte Esterase Negative (Negative) Urine RBC None (0-2) /hpf Urine WBC Rare (0-5) /hpf Cardiac Studies: No Data to Display
[2022-12-06] MEDS: famotidine 20 mg/2 mL INJ IVP (07:08)
--- NOTE | 2022-12-06 08:40 | PM.OP ---
Operative Report Date of procedure: December 06, 2022 Pre-op diagnosis: Preop Diagnosis nonreassuring heart tones Post-op diagnosis: Same as above Procedure done: Primary low transverse delivery Surgeon: Jese Means MD Estimated blood loss (mL): 1,000 IV fluids (mL): 1,300 Urine output (mL): 400 Complications: Bleeding Procedure: After assuring informed consent, the patient was taken to the operating room and anesthesia was initiated. She was placed in the dorsal supine position with a left lateral tilt. The abdomen was prepped and draped in the usual sterile manner. A time-out procedure was performed. A Pfannenstiel skin incision was made with the scalpel and carried through to the underlying layer of fascia with the Bovie. The fascia was nicked in the midline and the incision extended laterally with the Aguiar scissors. The superior aspect of the fascial incision was then grasped with Thomas clamps and elevated and the underlying rectus muscle dissected off bluntly and sharp with aguiar scissors. Attention was then turned to the inferior aspect of the incision which, in similar fashion, was grasped and tented up with Thomas clamps and the rectus muscle dissected bluntly. The rectus muscles were then in the midline and the peritoneum identified, tented up and entered sharply with Metzenbaum scissors. The peritoneal incision was then extended superiorly and inferiorly with good visualization of the bladder. The Reilly O retractor was then inserted and the vesicouterine peritoneum identified, grasped with pickups and entered sharply with Metzenbaum scissors. This incision was then extended laterally and the bladder flap created digitally. The uterus incised in a low transverse fashion with the scalpel. The uterine incision was then extended with the bandage scissors. The infant was then delivered in the cephalic presentation atraumatically. The nose and the mouth were suctioned with bulb and the cord clamped and cut. The cord was normal and had three vessels. Amniotic fluid was clear. The placenta was then removed manually and the uterus exteriorized and cleared of all clots and debris. The uterine incision was repaired with 0 Vicryl in a running-locked fashion. A second layer of the same suture was used to obtain excellent hemostasis. Pelvic cavity was irrigated and the gutters were cleared of all clots. The uterus was then returned to the abdomen. The rectus muscles were approximated with 3-0 chromic gut. The fascia was reapproximated with 0 Vicryl in an interrupted running fashion. The skin was closed with Insorb?s subcuticular absorbable fermin. The incision was infiltrated with Exparel for postoperative pain management. The patient tolerated the procedure well. The sponge, lap and needle counts were correct times three.
--- NOTE | 2022-12-06 09:10 | PC.NURSE ---
pt to OB6 from OR via bed. oriented to room/call light. ice chips given. pt instructed not to try to get out of bed without assistance. plan of care discussed.
[2022-12-06] MEDS: ketorolac 30 mg/mL INJ IVP ×3 (09:47→21:37)
--- NOTE | 2022-12-06 11:19 | PC.NURSE ---
Orders received from Dr. Murphy for supplementation with 22cal formula due to blood sugar issue and size for gestation. Recommended 10 to 15 mls of formula given after each feed in the manner of mothers choosing. Educated mother of MD recommendation, She stated that she was fine with that. Education and demonstration provided to mother and father on syringe feeding, questions answered at this time
--- NOTE | 2022-12-06 14:19 | PC.NURSE ---
clear liquids given
--- NOTE | 2022-12-06 16:01 | PC.NURSE ---
brianne care performed, very scant bleeding, pad changed, gown changed. pt up to chair with minimal assistance, no difficulties. jello and ice water provided at pt request. pt encouraged to sit in chair for as long as she desires, and to call nurse for assistance when ready to get back into bed, or if she would like to try ambulating in [place]. understanding voiced.
--- NOTE | 2022-12-06 16:30 | PC.NURSE ---
ambulated 1 lap around unit, no assistance needed. tolerated well. back to room to sit up in chair and have clear liquid tray.
[2022-12-06 18:26] LABS: Glucose Point of Care 94 mg/dL (70-110)
[2022-12-06] MEDS: simethicone 80 mg Chew PO (21:37)
[2022-12-06 23:41] LABS: Hematocrit 28.3 % (37.0-47.0); Hemoglobin 9.4 g/dL (11.5-15.3); Mean Corpuscular HGB Conc 33.2 g/dL (30.0-36.0); Mean Corpuscular Hemoglobin 30.9 pg (28.0-34.0); Mean Corpuscular Volume 93.1 fl (81-99); Mean Platelet Volume 11.3 fL (7.4-10.4); Platelet Count 188 10^3/cmm (130-400); Red Blood Count 3.04 10^6/uL (4.1-5.3); Red Cell Distribution Width 13.4 % (12.1-15.1); White Blood Count 15.2 10^3/uL (4.0-10.0)
[2022-12-07] VITALS (37 sets, daily range): BP systolic 112–140; BP diastolic 69–92; PULSE 75–104; RESP 18; TEMP 36–36.7; O2SAT 96–100
[2022-12-07] MEDS: ketorolac 30 mg/mL INJ IVP (04:15)
[2022-12-07] MEDS: simethicone 80 mg Chew PO ×4 (05:36→18:44)
--- NOTE | 2022-12-07 07:51 | ANE.PACU2 ---
Inpatient post-anesthesia follow up: Airway intact: Yes Vital signs: Temperature 96.8 F Pulse Rate 76 Respiratory Rate 16 Blood Pressure 112/75 Pulse Oximetry 99 Oxygen Delivery Me thod Room Air Oxygen Flow Rate Fraction of Inspir ed Oxygen Hydration adequate: Yes Nausea and vomiting: No Pain level: 2 Mental status: Baseline
[2022-12-07] MEDS: ferrous sulfate EC 325 mg Tablet PO ×2 (08:33→17:30)
[2022-12-07] MEDS: docusate sodium 100 mg Capsule PO ×2 (08:33→17:31)
[2022-12-07] MEDS: prenatal vitamin Capsule 1 CAP PO (08:34)
[2022-12-07] MEDS: HYDROcodone-acetaminophen 5-325 mg Tablet PO ×2 (10:19→18:44)
--- NOTE | 2022-12-07 17:37 | PM.PN ---
Subjective Subjective: Mrs. Amezquita 27-year-old female is status post primary low transverse delivery day 1, due to nonreassuring status. Vitals/I&O/Wt Last Vital Signs Temp 98.0 F 12/07/22 14:02 Pulse 78 12/07/22 13:59 Resp 18 12/07/22 14:02 BP 126/71 12/07/22 13:59 Pulse Ox 99 12/06/22 09:00 O2 Del Method 12/06/22 09:00 12/07/22 12/07/22 12/07/22 06:59 14:59 22:59 Output Total 350 / 5050 1300 / 1300 Balance -350 / -1704.167 -1300 / -1300 Physical Exam Narrative: GA: Alert and oriented ?3. HEENT: WNL. Heart: Regular rate and rhythm. Lungs: Clear to auscultation bilaterally. Abdomen: Bowel sounds present, nontender, minimal tenderness, incision clean and dry, no redness, pain or edema. 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 Extremities: No edema, no cyanosis, no calves pain. Urinary Catheter Management: Law[place] Latex: Cath Placed During This Visit: yes, but has since been removed by the nurse Reason for Continuing Indwelling Catheter: Decision to DC Catheter Urinary Catheter Date of Insertion: 12/06/22 Urinary Catheter Time of Insertion: 07:25 Date Urinary Catheter Removed: 12/06/22 Time Urinary Catheter Discontinued: 20:57 Data 12/06/22 23:10 A&P Assessment and plan (1) Status post delivery: Mrs. Amezquita status post primary low transverse delivery postoperative day 1. She is afebrile and hemodynamically stable. Overnight observation was uneventful. Tolerating diet well. Ambulating without difficulty. Incision clean and dry. Plan Continue postop observation. Attestations Medical Necessity Statement*: In my professional opinion per admitting diagnosis Coding Level of Care Code Acute Code for Chg Fwd Diagnoses Status post delivery Z98.891
[2022-12-07] MEDS: alum-mag-hydroxide-sime 30 mL UDC PO (18:44)
--- NOTE | 2022-12-07 18:46 | ECG_ITS ---
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 Measurements Intervals Addy Rate: 82 P: 45 FL: 164 QRS: 56 QRSD: 81 T: 61 QT: 346 QTc: 404 Interpretive Statements SINUS RHYTHM No previous ECG available for comparison Electronically Signed On 12-07-2022 23:13:56 SUPERVISOR [employer]ICATION by Patricia Bailon M.D. [id number]
--- NOTE | 2022-12-07 18:59 | PC.NURSE ---
Pt c/o chest pain and shortness of breath/pain with breathing. Dr Means notified. Orders for stat EKG. Pt given [place], mylicon, and maalox. Dr Means states if that does not resolve, do a work up for PE.
[2022-12-07] MEDS: zolpidem 5 mg Tablet 10 MG PO (19:25)
[2022-12-07] MEDS: sertraline 50 mg Tablet 25 MG PO (19:25)
[2022-12-07] MEDS: ibuprofen 800 mg tablet PO (21:30)
--- NOTE | 2022-12-07 22:50 | PC.NURSE ---
MOB found to be sleeping with baby in the bed. Educated on safe sleeping practices and infant placed in crib.
[2022-12-08 04:41] VITALS: BP 128/78; PULSE 77
[2022-12-08 09:06] VITALS: PULSE 66; TEMP 36.2; O2SAT 99
[2022-12-08] MEDS: ibuprofen 800 mg tablet PO ×2 (09:06→15:07)
[2022-12-08] MEDS: ferrous sulfate EC 325 mg Tablet PO (09:07)
[2022-12-08] MEDS: docusate sodium 100 mg Capsule PO (09:07)
[2022-12-08] MEDS: prenatal vitamin Capsule 1 CAP PO (09:07)
[2022-12-08 09:09] VITALS: BP 114/72; PULSE 75
[2022-12-08] MEDS: HYDROcodone-acetaminophen 5-325 mg Tablet PO ×2 (11:19→15:08)
--- NOTE | 2022-12-08 12:02 | PM.OBGYDC ---
Discharge Providers MICROBIOLOGY LAB MANAGER Date of Admission: 12/05/22 16:04 Date of Discharge: 12/08/22 Attending Provider at Admission: Yamila Quick MD Attending Provider at Discharge: Yamila Quick MD Primary Care Provider: Minesh Lobo MD Diagnoses at Discharge Discharge Diagnosis (1) Status post delivery: Details from hospital stay: Ms. Julian is a 27 year old is status post primary low termor delivery postoperative day 2 Status: Acute Reason for Visit Reason for Visit: contractions Hospital Course Hospital Course Ms. Julian is a 27 year old established patient with LMP of 03/02/22, and an CHAN of 12/25/21 based on her 7 week ultrasound placing her at 37 weeks gestation when she came to labor and delivery with occasional variable deceleration and suspected premature rupture of membrane. She had a slow progression of labor and dilated up to 5 cm and dilation when heart tracing started with the recurrent deep variable decelerations. A delivery was performed due to nonreassuring status. Postop observation was uneventful with the exception of anxiety due to nicotine withdrawal and wanting to go outside to smoke a cigarette. She is afebrile and hemodynamically stable postoperative day 2. Incision clean and dry. Ambulating without difficulty. Tolerating diet well. Counseled regarding pelvic rest for 6 weeks (no sex, no tampons, no vaginal douches). Return to the emergency room if any fever, increased bleeding or pain. Information Peripartum Data: Infant Delivery Method: Physical Exam Narrative: GA: Alert and oriented ?3. HEENT: WNL. Heart: Regular rate and rhythm. Lungs: Clear to auscultation bilaterally. Abdomen: Bowel sounds present, nontender, minimal tenderness, incision clean and dry, no redness, pain or edema. Uterine fundus below umbilicus. No Fundal Tenderness. 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 Extremities: No edema, no cyanosis, no calves pain. Urinary Catheter Management: Law[place] Latex: Cath Placed During This Visit: yes, but has since been removed by the nurse Reason for Continuing Indwelling Catheter: Decision to DC Catheter Urinary Catheter Date of Insertion: 12/06/22 Urinary Catheter Time of Insertion: 07:25 Date Urinary Catheter Removed: 12/06/22 Time Urinary Catheter Discontinued: 20:57 History History History 5 Term 2 2 Miscarriages/Ectopic 0 Living Children 4 Discharge Data Studies Completed and Pending Completed Studies During Hospitalization Category Date Time Status US OB BPP wo NST 95315 Stat Ultrasound 12/05/22 14:05 Completed Radiology Impressions Obstetrics US/Biophysical Profile 12/05/22 14:05 IMPRESSION: 1. Biophysical profile score: 6/8. 2. Normal cardiac activity. 3. Low normal amniotic fluid index. Visually the amount of amniotic fluid appears normal. Laboratory Results WBC 15.2 10^3/uL (4.0-10.0) H 12/06/22 23:10 RBC 3.04 10^6/uL (4.1-5.3) L 12/06/22 23:10 Hgb 9.4 g/dL (11.5-15.3) L 12/06/22 23:10 Hct 28.3 % (37.0-47.0) L 12/06/22 23:10 MCV 93.1 fl (81-99) 12/06/22 23:10 MCH 30.9 pg (28.0-34.0) 12/06/22 23:10 MCHC 33.2 g/dL (30.0-36.0) 12/06/22 23:10 RDW 13.4 % (12.1-15.1) 12/06/22 23:10 Plt Count 188 10^3/cmm (130-400) 12/06/22 23:10 MPV 11.3 fL (7.4-10.4) H 12/06/22 23:10 Neut % (Auto) 76.9 % 12/05/22 12:30 Lymph % (Auto) 15.6 % 12/05/22 12:30 [place] % (Auto) 5.2 % 12/05/22 12:30 Eos % (Auto) 0.9 % 12/05/22 12:30 Baso % (Auto) 0.4 % 12/05/22 12:30 Neut # (Auto) 10.27 10^3/uL (1.8-7.7) H 12/05/22 12:30 Lymph # (Auto) 2.1 10^3/uL (0.8-4.8) 12/05/22 12:30 [place] # (Auto) 0.7 10^3/uL (0.2-0.9) 12/05/22 12:30 Eos # (Auto) 0.1 10^3/uL (0.0-0.8) 12/05/22 12:30 Baso # (Auto) 0.1 10^3/uL (0.0-0.1) 12/05/22 12:30 Nucleated RBC % (auto) 0 % 12/05/22 12:30 Nucleated RBCs # 0.0 /100WBC 12/05/22 12:30 POC Glucose 94 mg/dL (70-110) 12/06/22 18:20 Insulin-like GF I Negative 12/05/22 12:00 Urine Color Light yellow (Yellow) 12/05/22 11:30 Urine Appearance Clear (CLEAR) 12/05/22 11:30 Urine pH 8 (5-7) H 12/05/22 11:30 Ur Specific [place] 1.010 (1.005-1.030) 12/05/22 11:30 Urine Protein Neg (Negative) 12/05/22 11:30 Urine Glucose (UA) Norm (Normal) 12/05/22 11:30 Urine Ketones Negative (Negative) 12/05/22 11:30 Urine Blood Neg (Negative) 12/05/22 11:30 Urine Nitrate Negative (Negative) 12/05/22 11:30 Urine Bilirubin Neg (Negative) 12/05/22 11:30 Urine Urobilinogen Neg mg/dL (Negative) 12/05/22 11:30 Ur Leukocyte Esterase Negative (Negative) 12/05/22 11:30 Urine RBC None /hpf (0-2) 12/05/22 11:30 Urine WBC Rare /hpf (0-5) 12/05/22 11:30 Ur Squamous Epith Cells 5-10 /hpf (0-5) H 12/05/22 11:30 Amorphous Sediment Not Reportable 12/05/22 11:30 Urine Bacteria None /hpf (NONE) 12/05/22 11:30 Urine Opiates Screen Negative ng/mL (Negative) 12/05/22 11:30 Ur Barbiturates Screen Negative ng/mL (Negative) 12/05/22 11:30 Ur Phencyclidine Scrn Negative ng/mL (Negative) 12/05/22 11:30 Ur Amphetamines Screen Negative ng/mL (Negative) 12/05/22 11:30 U Benzodiazepines Scrn Negative ng/mL (Negative) 12/05/22 11:30 Urine Cocaine Screen Negative ng/mL (Negative) 12/05/22 11:30 U Marijuana (THC) Screen Negative ng/mL (Negative) 12/05/22 11:30 Vitals Last Vital Signs Temp 97.2 F L 12/08/22 09:06 Pulse 75 12/08/22 09:09 Resp 18 12/07/22 14:02 BP 114/72 12/08/22 09:09 Pulse Ox 99 12/08/22 09:06 O2 Del Method 12/06/22 09:00 Discharge Plan Discharge Patient Disposition: Home Condition: Stable Prescriptions: New ibuprofen 800 mg tablet 800 mg PO TID PRN (Reason: pain) Qty: 60 0RF hydrocodone-acetaminophen 5-325 mg tablet 1 tab PO Q4H PRN (Reason: pain) Qty: 20 0RF Iron (ferrous sulfate) 325 mg (65 mg iron) tablet 325 mg PO BID Qty: 60 0RF Colace 100 mg capsule 100 mg PO BID Qty: 60 0RF acetaminophen 325 mg capsule 325 mg PO Q4H PRN (Reason: fever or pain) Qty: 60 0RF Continued trazodone 50 mg tablet 50 mg PO DAILY PRN (Reason: Anxiety) prenat.vits,giulia,wsi-ygbm-mmbuo Tablet 1 tab PO DAILY duloxetine 60 mg capsule,delayed release(DR/EC) 60 mg PO DAILY Qty: 90 4RF (DME) blood-glucose meter [Advocate Blood Glucose Monitor] [facility] [place] See Rx Instructions .Route Qty: 1 0RF Rx Instructions: As directed (DME) Accutrend Glucose test strips Strip See Rx Instructions .Route Qty: 200 0RF Rx Instructions: As directed (DME) lancets [Comfort Lancets] [facility] [place] [facility] [place] See Rx Instructions .Route Qty: 200 0RF Rx Instructions: As directed Discharge Orders: Discharge Order (Routine); Ordered 12/08/22 Ordered By: Jese Means Referrals: Jese Means MD [Physician] - 2 weeks Yamila Quick MD [Physician] - 6 Weeks Discharge Diet: Usual diet Discharge Activity: Limit activity as instructed Patient Instructions: Depression (DC), Bleeding (DC), Preeclampsia and Eclampsia After Delivery (GEN), OB C, OB Discharge Report, OB Food/Drug Interaction Guide, Opioid Safety, OB Home Care Activity Restrictions/Additional Instructions: 1. Please call [facility] on next working day to make your post-operative appointment in 2 weeks. 2. Please stay home until you come back to the clinic on first post-operative check up. 3. Please follow instructions on your medications CAREFULLY. 4. If you have abdominal incision, do not cover it unless dressing is necessary because of drainage. OK to shower, but avoid bath. Leave steri-strips until they fall off. If they are still on one week after surgery, you may remove them. 5. If you had vaginal surgery or vaginal repair, Dr. Means may instruct you to take SITZ bath. 6. Yellow, blood tinged odorous vaginal discharge is usually normal after hysterectomy or vaginal surgeries. 7. No sexual intercourse, tampons, or douches until you are completely released from the post-operative care. 8. Avoid constipation by eating right and maybe using some Metamucil or Milk of Magnesia. 9. All prescription refills are given during the working hours. Please do no wait till it runs out. Call the clinic at [phone] before your medication runs out. The clinic will get in touch with your doctor to prescribe medications if necessary. 10. Please remain within 40 mile radius from our hospital because emergencies do happen now and then during the post-operative period. 11. If you have stairs at home, take one step at a time slowly and minimize the number of trips. It helps to stay in one floor for the next few days. No lifting except what you can lift by one hand until you are released from the post-operative care. 12. Driving is discouraged until you are well healed. It may be 3-4 weeks before you feel strong enough to drive. You should be able to turn and look through the rear window without pain and you should be able to push the brake pedal very hard without pain before you drive. No fast rules, but SAFETY should be your primary concern. DO NOT drive if you are on sedating medications such as narcotics. 13. Call the clinic (during working hours) to make urgent appointment or go to the Emergency room, if any of the following occurs: i. Vaginal bleeding becomes heavy, more than a period. ii. Incision becomes red and sore, or drains pus. iii. Your temperature is over 100.4 or you have chill. iv. IV site becomes red and swollen (a little ``knot?? is usually OK) v. Persistent nausea and vomiting vi. Persistent constipation or diarrhea vii. Rash or allergic reaction to medications. Discharge Attestations MICROBIOLOGY LAB MANAGER Time Spent in Discharge Care*: greater than 30 min Coding Level of Care Code Acute Code for Chg Fwd Diagnoses Status post delivery Z98.891
[2022-12-08 15:07] VITALS: TEMP 35.8
[2022-12-08 15:08] VITALS: BP 117/68; PULSE 85; TEMP 36.6
[2022-12-08 15:16] VITALS: BP 117/68; PULSE 85; TEMP 36.6
== END 2022-12-08 15:17 | disposition home or self-care (01) | DRG 787 ==
LOC: OPOB 16:05 → OBGYN 16:05
PROVIDERS: Obstetrics & Gynecology; Admitting Provider Obstetrics & Gynecology; PCP Family Medicine; Visit Provider Obstetrics & Gynecology
PROC: 10D00Z1 Extraction of Products of Conception, Low, Open Approach (ICD-10-PCS; CPT 59514; principal; 2022-12-06 07:00)
DX: O76 Abnormality in fetal heart rate and rhythm complicating labor and delivery (principal); F17.213 Nicotine dependence, cigarettes, with withdrawal; O98.82 Other maternal infectious and parasitic diseases complicating childbirth; B95.1 Streptococcus, group B, as the cause of diseases classified elsewhere; O34.219 Maternal care for unspecified type scar from previous cesarean delivery; O24.429 Gestational diabetes mellitus in childbirth, unspecified control; O42.02 Full-term premature rupture of membranes, onset of labor within 24 hours of rupture; O99.344 Other mental disorders complicating childbirth; F32.A Depression, unspecified; F41.1 Generalized anxiety disorder; O99.334 Smoking (tobacco) complicating childbirth; O99.345 Other mental disorders complicating the puerperium; Z3A.37 37 weeks gestation of pregnancy; Z37.0 Single live birth; Z87.59 Personal history of other complications of pregnancy, childbirth and the puerperium
CPT/HCPCS: 36415; 36416; 51702; 59025; 59409; 76819; 80306; 81001; 82962; 83986; 84112; 85025; 85027; 93005; 96374; 96376; 98960; 99211; C9290; J1885; J2274; J2405; J2590; J2765; J3010; J3370; J3490; J7030; J7120; J7121

== ENCOUNTER → 2023-02-05 10:30 | Day surgery (SDC) | payer BC, MEDICAID, SELFPAY ==
[2023-02-05] VITALS (13 sets, daily range): BP systolic 104–129; BP diastolic 62–91; PULSE 57–88; RESP 15–20; TEMP 36.1–36.6; O2SAT 97–100
[2023-02-05 11:02] LABS: OR HCG Qualitative Urine Negative (Negative)
[2023-02-05] MEDS: sodium chloride 0.9% 1,000 ML 30 ML IV (11:14)
[2023-02-05] MEDS: acetaminophen 1,000 MG/100 ML PIGGYBACK 400 MG IV (11:17)
[2023-02-05] MEDS: scopolamine 1.5 Patch 1 PATCH TRANSDERMA (11:17)
[2023-02-05] MEDS: phenazopyridine 100 mg Tablet 200 MG PO (11:20)
[2023-02-05] MEDS: CELEcoxib 200 mg Capsule 400 MG PO (11:21)
[2023-02-05] MEDS: gabapentin 300 mg Capsule PO (11:21)
--- NOTE | 2023-02-05 12:25 | W.PM.OPSUD ---
Surgery/Procedure H&P Update DATE OF PROCEDURE: February 05, 2023 DATE H&P PERFORMED: 01/30/23 PREOP DIAGNOSIS: desires sterilization PLANNED PROCEDURE: Operation Date: 02/05/23 12:30 Proposed Procedures p Laparoscopic bilateral salpingectomy 21617, Z30.2(Bilateral) - Yamila Quick MD Related Problem List Diagnoses (1) Sterilization consult:
[2023-02-05] MEDS: ceFAZolin 2,000 MG in sodium chloride 0.9% (plus) 50 ML 100 MG IV (12:37)
--- NOTE | 2023-02-05 13:00 | ANES.PREANE2 ---
Pre-Anesthetic Assessment Height/Weight: Height 1.7 m Temp Pulse Resp BP Pulse Ox O2 Del Method 97.9 F 83 18 116/79 98 Room Air 02/05/23 10:57 02/05/23 10:57 02/05/23 10:57 02/05/23 10:57 02/05/23 10:57 02/05/23 10:58 Preop Diagnosis: desires sterilization Operation Date: 02/05/23 12:30 Proposed Procedures p Laparoscopic bilateral salpingectomy 81994, Z30.2(Bilateral) - Yamila Quick MD Familial anesthetic complications: none Was Beta Maday taken within 24 hours: N/A Was Clonidine taken within 24 hours: N/A Last intake: Intake Last Liquid Date 02/04/23 Last Liquid Time 19:00 Last Solid Date 02/04/23 Last Solid Time 19:00 Social Tobacco and No alcohol Exam alert, oriented x 3 and regular rate & rhythm Airway Submandibular: within normal limits Cervical ROM: within normal limits Mallampati: Class II Dentition: full Pulmonary Chronic Obstructive Pulmonary Disease Neuropsych Anxiety and Depression Anesthetic Plan ASA status: 2 Anesthesia: General Medications/Allergies Allergies Allergy/AdvReac Type Severity Reaction Status Date / Time strawberry Allergy Severe Anaphylaxis Verified 02/05/23 10:56 Penicillins Allergy Unknown Verified 02/05/23 10:56 Current Medications Generic Name Dose Route Start Last Admin Trade Name Freq PRN Reason Stop Dose Admin Sodium Chloride 1,000 mls @ 30 mls/hr 02/05/23 10:45 02/05/23 11:14 Sodium Chloride 0.9% IV 02/06/23 10:44 30 mls/hr .Q24H TORY Administration PFSH Anesthesia Medical History Cannabis use disorder, mild, abuse was using at night for sleep and anxiety, but stopped in March 2022. delivery delivered Generalized anxiety disorder Gestational diabetes Hx of cryosurgery, cervix, complicating (~2011) performed in [place] Major depressive disorder, recurrent severe without psychotic features Nicotine dependence, cigarettes, uncomplicated Nightmare disorder No pertinent past medical history neghx: htn,dm,thyroid,dvt/pe PCP: None Post-traumatic stress disorder, chronic Psychiatric care Surgical History Status post delivery Family History Family/Other Breast cancer Maternal Great aunt-- dx age unknown Denies family history of Colon cancer Ovarian cancer Diabetes Heart disease Hypercholesteremia Hypertension Uterine cancer Thyroid disease Stroke Data Anesthesia Cardiac Studies: No Data to Display
--- NOTE | 2023-02-05 13:47 | PM.OP ---
Operative Report Date of procedure: February 05, 2023 Pre-op diagnosis: Preop Diagnosis desires sterilization Post-op diagnosis: same Post-op findings: normal appearing uterus and ovaries Procedure done: laparoscopic bilateral salpingectomy Specimens removed/disposition: bilateral fallopian tubes to pathology Surgeon: Yamila Quick Anesthesia: General Estimated blood loss (mL): 5 IV fluids (mL): 600 Urine output (mL): 100 Complications: none Condition: stable Disposition: PACU Procedure: The patient was taken to the operating room where general anesthesia was administered and found to be adequate. She was prepped and draped in the normal sterile fashion in the dorsal lithotomy position in [facility]. A Law[place] catheter was placed. A weighted speculum was placed into the vagina and the anterior lip of the cervix grasped with a single-tooth tenaculum. A ZTimZon uterine manipulator was placed. The gloves were changed and attention was turned to the laparoscopic portion of the case. A 5 mm infraumbilical incision was made. The 5 mm trocar was placed using the easy view trocar. Intra-abdominal placement was confirmed and CO2 gas was used to insufflate the abdomen. Using direct visualization and illumination of the abdominal wall, two 5 mm incisions were made low and lateral. One on the left and one on the right. The 5mm trochars were then placed under direct visualization. Using the uterine manipulator and the grasper, the fallopian tubes were identified. Using the laparoscopic cautery, the fallopian tube was clamped cauterized and cut. First on the right, then on the left. There was excellent hemostasis post removal of the bilateral tubes. Pictures were taken. All instruments were removed. The abdomen was desufflated. The incisions were closed with 4-0 Vicryl. 10 ml of 1/2% bupivicaine was used around the incisions. The patient tolerated the procedure well. Sponge lap and needle counts were correct x3. She was taken to the recovery room in stable condition.
--- NOTE | 2023-02-05 13:56 | PM.DCS ---
Discharge Providers Date of Admission: 02/05/23 Date of Discharge: February 05, 2023 Attending Provider at Admission: Dr. Quick Attending Provider at Discharge: Yamila Quick MD Primary Care Provider: Minesh Lobo MD Diagnoses at Discharge Discharge Diagnosis (1) Sterilization consult: Status: Acute Hospital Course Hospital Course The patient was admitted for surgery. She did well postoperatively and was ready for discharge. Physical Exam Urinary Catheter Management: Law[place]: Cath Placed During This Visit: yes, but has since been removed by the nurse Urinary Catheter Date of Insertion: 02/05/23 Urinary Catheter Time of Insertion: 12:58 Date Urinary Catheter Removed: 02/05/23 Time Urinary Catheter Discontinued: 13:34 Discharge Data Studies Completed and Pending Pending at discharge Category Date Time Status Urine Culture Routine Lab 02/05/23 13:01 Received Pathology: Surgical [PTH] Routine Pth 02/05/23 13:08 Ordered Laboratory Results Urine HCG, Qual Negative (Negative) 02/05/23 11:00 Vitals Last Vital Signs Temp 97.0 F L 02/05/23 13:47 Pulse 68 02/05/23 13:50 Resp 16 02/05/23 13:50 BP 128/82 02/05/23 13:50 Pulse Ox 100 02/05/23 13:50 O2 Del Method Simple Mask 02/05/23 13:50 O2 Flow Rate 6 02/05/23 13:50 Discharge Plan Discharge Patient Disposition: Home Condition: Stable Prescriptions: New hydrocodone-acetaminophen 5-325 mg tablet 1 tab PO Q4H Qty: 30 0RF Discharge Orders: Discharge Order (Routine); Ordered 02/05/23 Ordered By: Yamila Quick Discharge Attestations Time Spent in Discharge Care*: less than 30 min Quality Metrics Clinical Quality Measures [ No reported AMI, CVA or VTE this stay] Coding Level of Care Code Acute Code for Chg Fwd Diagnoses Sterilization consult Z30.09
[2023-02-05] MEDS: fentaNYL 50 mcg/mL INJ 2mL 100 MCG IVP (14:21)
--- NOTE | 2023-02-05 14:46 | ANE.PACU2 ---
Inpatient post-anesthesia follow up: Airway intact: Yes Vital signs: Temperature 97.0 F Pulse Rate 81 Respiratory Rate 20 Blood Pressure 124/84 Pulse Oximetry 98 Oxygen Delivery Me thod Room Air Oxygen Flow Rate 6 Fraction of Inspir ed Oxygen Hydration adequate: Yes Nausea and vomiting: No Pain level: 3 Mental status: Baseline
[2023-02-05] MEDS: HYDROcodone-acetaminophen 5-325 mg Tablet 1 TAB PO (15:09)
== END | disposition home or self-care (01) ==
PROVIDERS: Anesthesiology; PCP Family Medicine; Visit Provider Obstetrics & Gynecology
PROC: (CPT 58661; principal; 2023-02-05 12:20)
DX: Z30.2 Encounter for sterilization (principal); J44.9 Chronic obstructive pulmonary disease, unspecified; F17.210 Nicotine dependence, cigarettes, uncomplicated
CPT/HCPCS: 58661; 81025; 84703; 87086; 88302; J0131; J0690; J1100; J2250; J2405; J2704; J3010; J3490; J7030